=== PATIENT | male | born 1940 | race Caucasian/White ===

== ENCOUNTER 2020-06-19 17:10 | Inpatient (IN) ==
[2020-06-19] MEDS ORDERED: VENTOLIN HFA (PER PUFF-WITH SPACER) IH STA ×2 (17:28→20:18)
--- NOTE | 2020-06-19 17:49 | ED.PDOC ---
General <AMY MARTINEZ DO - Last Filed: 06/22/20 07:39> ED Provider: Dr. AMY MARTINEZ Chief Complaint: Shortness of Air Stated Complaint: Pos for Covid; Tested 10 days ago. Today developed increasing breathing difficulties. Time Seen by Physician: 17:30 Mode of Arrival: Walk-In Information Source: Patient Exam Limitations: No limitations Primary Care Provider: AMY MAC Nursing and Triage Documentation Reviewed and Agree: Yes Does patient meet sepsis criteria?: No System Inflammatory Response Syndrome: Not Applicable Sepsis Protocol: For patient's 13 years and over: Temp is 96.8 and below OR 101 and greater Pulse >90 BPM Resp >20/minute Acutely Altered Mental Status Are patient's symptoms suggestive of a new infection, such as: -Pneumonia -Skin, Soft Tissue -Endocarditis -UTI -Bone, Joint Infection -Implantable Device -Acute Abdominal Infection -Wound Infection -Meningitis -Blood Stream Catheter Infection -Unknown Respiratory Complaint Exam <DO Reagan BARFIELD Last Filed: 06/22/20 07:39> Shortness of Air Complaint/Exam Onset/Duration: Several days Symptoms Are: Worse Timing: Intermittent Initial Severity: Moderate Current Severity: Moderate Character: Reports Dyspnea at rest and Dyspnea on exertion Aggravating: Reports Movement, Deep breaths and Recumbent position Alleviating: Reports None Associated Signs and Symptoms: Reports Cough; Denies Wheezing, Chest pain with cough, Chest pain, Fever, Chills, Diaphoresis, Nasal congestion, Dizziness, Calf pain, Calf swelling, Edema, Rapid breathing, Labored breathing and Decreased intake Related History: Reports Similar episode History of Healthcare-Acquired Pneumonia: No Pulmonary Embolism Risk Factors: Reports None Cardiac Risk Factors: Reports None Pseudomonas Risk Factors: Reports None Tuberculosis Risk Factors: Reports None Home Oxygen Use: No Recent Stress Test: No Recent Echo/LV Function: No Respiratory Distress: None Stridor Present: No Tracheal Deviation: No Subcutaneous Emphysema: No Accessory Muscle Use: No Retractions: Not Present Diminished Breath Sounds: No Unable to Speak Full Sentences: No Fatigue: Yes Leg Swelling: No [employer]'s Sign Present: No Grunting Respirations: No Kussmaul Respirations: No Differential Diagnoses: Pneumonia and Other (COVID-19) Review of Systems <DO Reagan BARFIELD Last Filed: 06/22/20 07:39> Review Of Systems Constitutional: Reports Weakness Respiratory: Reports Cough and Short of air All Other Systems: Reviewed and Negative PFSH <AMY MARTINEZ DO - Last Filed: 06/22/20 07:39> Medical History Cancer Family History SISTER Cancer Social History Smoking and tobacco status: Former smoker Surgical History Hx of total knee replacement Physical Exam <AMY MARTINEZ DO - Last Filed: 06/22/20 07:39> Physical Exam Appearance: Reports Ill-appearing and Obese Ill-appearing: Mild Pain Distress: None Eyes: Reports HARRY, EOMI and Conjunctiva clear ENT: Reports Ears normal, Nose normal and Oropharynx normal Neck: Supple Respiratory: Reports Airway patent, Breath sounds clear, Breath sounds equal and Respirations nonlabored Cardiovascular: Reports RRR, Pulses normal, No rub and No murmur GI/: Reports Soft, Nontender, No masses, Bowel sounds normal and No Organomegaly Musculoskeletal: Reports Normal strength, ROM intact, No edema and No calf tenderness Skin: Reports Warm, Dry and Normal color Neurological: Reports Sensation intact, Motor intact, Reflexes intact, Cranial nerves intact, Alert and Oriented Psychiatric: Reports Affect appropriate and Mood appropriate Interpretation <AMY MARTINEZ DO - Last Filed: 06/22/20 07:39> Radiology Interpretation Radiology Interpretation By: Radiologist Radiology Results: Positive (interstitial pneumonitis) EKG Interpretation Time of EKG #1: 18:29 Rate: Tachy ST Segment: Other (non specific) Interpretation: pac, sinus tachycardia <NYLA NAIDU MD - Last Filed: 06/19/20 22:22> Re-Evaluation Time of Re-Evaluation: 19:10 Status: Unchanged Vital Signs Stable: No Pain Level: 0 Appearance: NAD Lungs: Other (minimal rhonchi and wheezes. ) Skin: Warm and Dry Neuro: Alert and Oriented X3 CV: RRR Additional Comments: Pt was sitting comfortably in the chair. mild recurrent cough. Pt ABG was reviewed, and d/w Dr Mac: pt for admission. Please see orders per Dr Mac. Physician Notification <AMY MARTINEZ DO - Last Filed: 06/22/20 07:39> Case Discussed Physician Notified: Dr Naidu-discussed and accepted transfer of care Time of Notification: 19:15 <NYLA NAIDU MD - Last Filed: 06/19/20 22:22> Critical Care Note Total Critical Care Time (mins): 0 Course <AMY MARTINEZ DO - Last Filed: 06/22/20 07:39> Course Hematology/Chemistry: 06/22/20 05:00 06/22/20 05:00 Orders, Labs, Meds: Lab Review 06/19/20 06/19/20 06/19/20 17:40 17:59 17:59 WBC 8.32 RBC 4.52 L Hgb 14.0 Hct 40.3 L MCV 89.2 MCH 31.0 MCHC 34.7 RDW Coeff of Deborah 14.1 Plt Count 163 Immature Gran % (Auto) 0.4 Neut % (Auto) 92.0 H Lymph % (Auto) 3.7 L Garfield % (Auto) 3.8 Eos % (Auto) 0.0 Baso % (Auto) 0.1 Neut # (Auto) 7.7 H Lymph # (Auto) 0.3 L Garfield # (Auto) 0.3 L Eos # (Auto) 0.0 Baso # (Auto) 0.0 Immature Gran # (Auto) 0.0 Puncture Site Rr O2 Saturation 85.5 L ABG pH 7.45 ABG pCO2 31.0 L ABG pO2 48.0 L* ABG HCO3 21.5 L ABG Total CO2 22.5 ABG Base Excess -2.5 L Art Test + Oxygen Liter Flow FiO2 % 21.0 Sodium 133.8 L Potassium 4.35 Chloride 99.6 Carbon Dioxide 24.0 Anion Gap 14.55 BUN 26.7 H Creatinine 1.15 H Estimated GFR (MDRD) 61.00 BUN/Creatinine Ratio 23.21 Glucose 123.5 H Lactic Acid Calcium 9.50 Total Bilirubin 0.94 AST 54.5 ALT 24.4 Alkaline Phosphatase 59.7 Total Creatine Kinase 521.9 H CK-MB (CK-2) 4.390 H CK-MB (CK-2) % 0.8400 Total Protein 8.16 Albumin 4.62 Globulin 3.54 Albumin/Globulin Ratio 1.30 06/19/20 06/19/20 17:59 19:01 WBC RBC Hgb Hct MCV MCH MCHC RDW Coeff of Deborah Plt Count Immature Gran % (Auto) Neut % (Auto) Lymph % (Auto) Garfield % (Auto) Eos % (Auto) Baso % (Auto) Neut # (Auto) Lymph # (Auto) Garfield # (Auto) Eos # (Auto) Baso # (Auto) Immature Gran # (Auto) Puncture Site Bnc O2 Saturation 93.6 L ABG pH 7.51 H* ABG pCO2 25.0 L ABG pO2 66.0 L ABG HCO3 19.9 L ABG Total CO2 20.7 L ABG Base Excess -3.1 L Art Test + Oxygen Liter Flow 2.00 FiO2 % 28.0 Sodium Potassium Chloride Carbon Dioxide Anion Gap BUN Creatinine Estimated GFR (MDRD) BUN/Creatinine Ratio Glucose Lactic Acid 1.33 Calcium Total Bilirubin AST ALT Alkaline Phosphatase Total Creatine Kinase CK-MB (CK-2) CK-MB (CK-2) % Total Protein Albumin Globulin Albumin/Globulin Ratio Orders Category Date Time Status ADMIT PATIENT INPATIENT .TO [facility] (MONITORED BED) ADMISSION 06/19/20 21:49 Active ABG DRAW REQUEST Stat CARDIO 06/19/20 17:28 Completed ABG DRAW REQUEST Stat CARDIO 06/19/20 19:01 Completed EKG-(ED ONLY) Stat CARDIO 06/19/20 18:17 Completed METERED DOSE INHALATION Routine CARDIO 06/19/20 17:29 Completed METERED DOSE INHALATION Routine CARDIO 06/19/20 20:20 Active OXYGEN Routine CARDIO 06/19/20 17:29 Active TELEMETRY MONITORING TELE CARE 06/19/20 21:51 Active ED IV/MEDIPORT/POWERPORT .ONCE EMERGENCY 06/19/20 20:18 Active ABG Stat LAB 06/19/20 17:40 Completed ABG Stat LAB 06/19/20 19:01 Completed CBC W/ AUTO DIFF Stat LAB 06/19/20 17:59 Completed CMP [COMPREHENSIVE METABOLIC PANEL] Stat LAB 06/19/20 17:59 Completed CPK [CREATINE KINASE] Stat LAB 06/19/20 17:59 Completed LACTIC ACID Stat LAB 06/19/20 17:59 Completed 0.9 % Sodium Chloride [Saline Flush] MEDS 06/19/20 20:18 Active 1 syr IVF PRN PRN Acetaminophen [Tylenol] MEDS 06/19/20 18:57 Discontinued 650 mg PO ONCE STA Albuterol Inhaler (Single Pt) [Proair Hfa (Single MEDS 06/19/20 22:00 Discontinued Patient Use)] 2 puff IH Q4HR Albuterol Inhaler(with Spacer) [Ventolin Hfa (Per Puff- MEDS 06/19/20 17:28 Discontinued with Spacer)] 2 puff IH ONCE STA Albuterol Inhaler(with Spacer) [Ventolin Hfa (Per Puff- MEDS 06/19/20 20:18 Discontinued with Spacer)] 2 puff IH ONCE STA Azithromycin [Zithromax] MEDS 06/19/20 18:15 Discontinued 500 mg PO ONCE STA Ceftriaxone/D5w 1 gm Premix [Rocephin 1 gm/50 ml D5w] MEDS 06/19/20 22:00 Discontinued 1 gm in 50 ml IV DAILY Dexamethasone Sod Phosphate [Decadron] MEDS 06/19/20 21:51 Discontinued 6 mg IVP ONCE STA Doxycycline Hyclate Inj [Doxy-100] 100 mg MEDS 06/19/20 22:00 Active 0.9 % Sodium Chloride [Sodium Chloride] 100 ml IV Q12HR Guaifenesin/Dextromethorphan [Robitussin Dm Syrup] MEDS 06/19/20 18:16 Discontinued 10 ml PO ONCE STA Ipratropium Inhaler(Spacer) [Atrovent Hfa Inhaler (Per MEDS 06/19/20 20:18 Discontinued Puff-with Spacer)] 2 puff IH ONCE STA Remdesivir Solution [Remdesivir] 200 mg MEDS 06/19/20 21:51 Discontinued 0.9 % Sodium Chloride [Sodium Chloride] 210 ml IV ONCE Sodium Chloride 0.9% [Sodium Chloride] 500 ml MEDS 06/19/20 20:18 Discontinued IV BOLUS CHEST, 1V AP ONLY Stat RADS 06/19/20 17:29 Completed Medications Generic Name Dose Route Start Last Admin Trade Name Freq PRN Reason Stop Dose Admin Acetaminophen 650 mg 06/19/20 22:10 Acetaminophen 325 Mg Tablet PO Q4HR PRN Fever >101 Albuterol Sulfate 2 puff 06/20/20 02:00 06/22/20 05:50 Albuterol Sulfate (Ventolin Hfa) 18 Gm 1 Puff With Spacer IH 2 puff RTQ4H LILLIAN Administration Atorvastatin Calcium 10 mg 11/24/20 22:30 06/21/20 20:14 Atorvastatin Calcium 10 Mg Tablet PO 10 mg BEDTIME LILLIAN Administration Dexamethasone Sodium Phosphate 6 mg 06/20/20 14:00 06/21/20 11:01 Dexamethasone Sod Phos 10 Mg/Ml Inj IVP 6 mg DAILY LILLIAN Administration Enoxaparin Sodium 40 mg 06/19/20 22:30 06/21/20 09:37 Enoxaparin Sodium 40 Mg/0.4 Ml Syr SUBCUT 40 mg DAILY LILLIAN Administration Famotidine 40 mg 06/19/20 22:30 06/21/20 21:12 Famotidine Inj 20 Mg/2 Ml Vial IVP 40 mg Q12HR LILLIAN Administration Guaifenesin/Codeine Phosphate 5 ml 06/19/20 22:10 06/22/20 03:44 Guaifenesin/Codeine 100/10 Mg/5 Ml Syrup Ud Cup PO 5 ml Q4HR PRN Administration Cough Doxycycline Hyclate 100 mg/ 100 mls @ 50 mls/hr 06/19/20 22:00 06/21/20 21:54 Sodium Chloride IV 06/22/20 21:59 50 mls/hr Q12HR LILLIAN Administration CEFTRIAXONE/D5W 1 GM PREMIX 1 gm in 50 mls @ 75 mls/hr 06/20/20 21:00 05/28 01/13 20:14 Rocephin 1 Gm/50 Ml D5w IV 06/22/20 21:59 75 mls/hr BEDTIME LILLIAN Administration REMDESIVIR SOLUTION 100 mg/ 250 mls @ 250 mls/hr 06/21/20 09:00 06/21/20 09:37 Sodium Chloride IV 06/24/20 10:00 250 mls/hr DAILY LILLIAN Administration Ipratropium [place] 2 puff 06/20/20 06:00 06/22/20 05:50 Ipratropium [place] 12.9 Gm Hfa Inhaler Per Puff With Spacer IH 2 puff RTQID LILLIAN Administration Non-Formulary Medication 10 mg 06/19/20 23:15 06/21/20 20:21 Ruxolitinib [Jakafi] PO 10 mg BID LILLIAN Administration Non-Formulary Medication 20 mg 06/19/20 23:15 06/21/20 20:20 Trospium PO 20 mg BID LILLIAN Administration Sodium Chloride 1 syr 06/19/20 20:18 06/20/20 20:13 0.9% Sodium Chloride 10 Ml Disp.Syrin IVF 1 syr PRN PRN Administration To flush IV Discontinued Medications Generic Name Dose Route Start Last Admin Trade Name Freq PRN Reason Stop Dose Admin Acetaminophen 650 mg 06/19/20 18:57 06/19/20 20:53 Acetaminophen 325 Mg Tablet PO 06/19/20 18:58 650 mg ONCE STA Administration Albuterol Sulfate 2 puff 06/19/20 17:28 06/19/20 18:12 Albuterol Sulfate (Ventolin Hfa) 18 Gm 1 Puff With Spacer IH 06/19/20 17:29 2 puff ONCE STA Administration Albuterol Sulfate 2 puff 06/19/20 20:18 06/19/20 21:09 Albuterol Sulfate (Ventolin Hfa) 18 Gm 1 Puff With Spacer IH 06/19/20 20:19 2 puff ONCE STA Administration Albuterol Sulfate 2 puff 06/19/20 22:00 06/19/20 22:12 Albuterol Sulfate 8.5 Gm Inhaler (Single Patient Use) IH Not Given Q4HR LILLIAN Azithromycin 500 mg 06/19/20 18:15 06/19/20 18:35 Azithromycin 250 Mg Tablet PO 06/19/20 18:16 500 mg ONCE STA Administration Dexamethasone Sodium Phosphate 6 mg 06/19/20 21:51 06/19/20 22:46 Dexamethasone Sod Phos 10 Mg/Ml Inj IVP 06/19/20 21:52 6 mg ONCE STA Administration Guaifenesin/Dextromethorphan 10 ml 06/19/20 18:16 06/19/20 18:36 Guaifenesin/Dextromethorphan 200/20 Mg/10 Ml Cup PO 06/19/20 18:17 10 ml ONCE STA Administration Sodium Chloride 500 mls @ 500 mls/hr 06/19/20 20:18 06/19/20 21:10 Sodium Chloride IV 06/19/20 21:17 500 mls/hr BOLUS STA Administration CEFTRIAXONE/D5W 1 GM PREMIX 1 gm in 50 mls @ 75 mls/hr 06/19/20 22:00 06/20/20 00:12 Rocephin 1 Gm/50 Ml D5w IV 06/22/20 21:59 75 mls/hr DAILY LILLIAN Administration REMDESIVIR POWDER 200 mg/ 250 mls @ 125 mls/hr 06/19/20 21:51 06/21/20 11:03 Sodium Chloride IV 06/19/20 23:50 Not Given ONCE STA REMDESIVIR POWDER 100 mg/ 100 mls @ 100 mls/hr 06/20/20 09:00 06/20/20 09:51 Sodium Chloride IV 06/25/20 08:59 Not Given DAILY LILLIAN REMDESIVIR POWDER 200 mg/ 250 mls @ 125 mls/hr 06/20/20 08:30 06/20/20 09:17 Sodium Chloride IV 06/20/20 10:29 125 mls/hr ONCE ONE Administration Ipratropium Vernon 2 puff 06/19/20 20:18 06/19/20 21:09 Ipratropium [place] 12.9 Gm Hfa Inhaler Per Puff With Spacer IH 06/19/20 20:19 2 puff ONCE STA Administration Vital Signs: Temp Pulse Resp BP Pulse Ox 06/19/20 17:23 100.7 F H 109 H 20 142/58 H 91 L <NYLA NAIDU MD - Last Filed: 06/19/20 22:22> Course Orders, Labs, Meds: Lab Review 06/19/20 06/19/20 06/19/20 17:40 17:59 17:59 WBC 8.32 RBC 4.52 L Hgb 14.0 Hct 40.3 L MCV 89.2 MCH 31.0 MCHC 34.7 RDW Coeff of Deborah 14.1 Plt Count 163 Immature Gran % (Auto) 0.4 Neut % (Auto) 92.0 H Lymph % (Auto) 3.7 L Garfield % (Auto) 3.8 Eos % (Auto) 0.0 Baso % (Auto) 0.1 Neut # (Auto) 7.7 H Lymph # (Auto) 0.3 L Garfield # (Auto) 0.3 L Eos # (Auto) 0.0 Baso # (Auto) 0.0 Immature Gran # (Auto) 0.0 Puncture Site Rr O2 Saturation 85.5 L ABG pH 7.45 ABG pCO2 31.0 L ABG pO2 48.0 L* ABG HCO3 21.5 L ABG Total CO2 22.5 ABG Base Excess -2.5 L Art Test + Oxygen Liter Flow FiO2 % 21.0 Sodium 133.8 L Potassium 4.35 Chloride 99.6 Carbon Dioxide 24.0 Anion Gap 14.55 BUN 26.7 H Creatinine 1.15 H Estimated GFR (MDRD) 61.00 BUN/Creatinine Ratio 23.21 Glucose 123.5 H Lactic Acid Calcium 9.50 Total Bilirubin 0.94 AST 54.5 ALT 24.4 Alkaline Phosphatase 59.7 Total Creatine Kinase 521.9 H CK-MB (CK-2) 4.390 H CK-MB (CK-2) % 0.8400 Total Protein 8.16 Albumin 4.62 Globulin 3.54 Albumin/Globulin Ratio 1.30 06/19/20 06/19/20 17:59 19:01 WBC RBC Hgb Hct MCV MCH MCHC RDW Coeff of Deborah Plt Count Immature Gran % (Auto) Neut % (Auto) Lymph % (Auto) Garfield % (Auto) Eos % (Auto) Baso % (Auto) Neut # (Auto) Lymph # (Auto) Garfield # (Auto) Eos # (Auto) Baso # (Auto) Immature Gran # (Auto) Puncture Site Bnc O2 Saturation 93.6 L ABG pH 7.51 H* ABG pCO2 25.0 L ABG pO2 66.0 L ABG HCO3 19.9 L ABG Total CO2 20.7 L ABG Base Excess -3.1 L Art Test + Oxygen Liter Flow 2.00 FiO2 % 28.0 Sodium Potassium Chloride Carbon Dioxide Anion Gap BUN Creatinine Estimated GFR (MDRD) BUN/Creatinine Ratio Glucose Lactic Acid 1.33 Calcium Total Bilirubin AST ALT Alkaline Phosphatase Total Creatine Kinase CK-MB (CK-2) CK-MB (CK-2) % Total Protein Albumin Globulin Albumin/Globulin Ratio Orders Category Date Time Status ADMIT PATIENT INPATIENT .TO [facility] (MONITORED BED) ADMISSION 06/19/20 21:49 Active ABG DRAW REQUEST Stat CARDIO 06/19/20 17:28 Completed ABG DRAW REQUEST Stat CARDIO 06/19/20 19:01 Completed EKG-(ED ONLY) Stat CARDIO 06/19/20 18:17 Completed METERED DOSE INHALATION Routine CARDIO 06/19/20 17:29 Completed METERED DOSE INHALATION Routine CARDIO 06/19/20 20:20 Active OXYGEN Routine CARDIO 06/19/20 17:29 Active TELEMETRY MONITORING TELE CARE 06/19/20 21:51 Active ED IV/MEDIPORT/POWERPORT .ONCE EMERGENCY 06/19/20 20:18 Active ABG Stat LAB 06/19/20 17:40 Completed ABG Stat LAB 06/19/20 19:01 Completed CBC W/ AUTO DIFF Stat LAB 06/19/20 17:59 Completed CMP [COMPREHENSIVE METABOLIC PANEL] Stat LAB 06/19/20 17:59 Completed CPK [CREATINE KINASE] Stat LAB 06/19/20 17:59 Completed LACTIC ACID Stat LAB 06/19/20 17:59 Completed 0.9 % Sodium Chloride [Saline Flush] MEDS 06/19/20 20:18 Active 1 syr IVF PRN PRN Acetaminophen [Tylenol] MEDS 06/19/20 18:57 Discontinued 650 mg PO ONCE STA Albuterol Inhaler (Single Pt) [Proair Hfa (Single MEDS 06/19/20 22:00 Discontinued Patient Use)] 2 puff IH Q4HR Albuterol Inhaler(with Spacer) [Ventolin Hfa (Per Puff- MEDS 06/19/20 17:28 Discontinued with Spacer)] 2 puff IH ONCE STA Albuterol Inhaler(with Spacer) [Ventolin Hfa (Per Puff- MEDS 06/19/20 20:18 Discontinued with Spacer)] 2 puff IH ONCE STA Azithromycin [Zithromax] MEDS 06/19/20 18:15 Discontinued 500 mg PO ONCE STA Ceftriaxone/D5w 1 gm Premix [Rocephin 1 gm/50 ml D5w] MEDS 06/19/20 22:00 Discontinued 1 gm in 50 ml IV DAILY Dexamethasone Sod Phosphate [Decadron] MEDS 06/19/20 21:51 Discontinued 6 mg IVP ONCE STA Doxycycline Hyclate Inj [Doxy-100] 100 mg MEDS 06/19/20 22:00 Active 0.9 % Sodium Chloride [Sodium Chloride] 100 ml IV Q12HR Guaifenesin/Dextromethorphan [Robitussin Dm Syrup] MEDS 06/19/20 18:16 Discontinued 10 ml PO ONCE STA Ipratropium Inhaler(Spacer) [Atrovent Hfa Inhaler (Per MEDS 06/19/20 20:18 Discontinued Puff-with Spacer)] 2 puff IH ONCE STA Remdesivir Solution [Remdesivir] 200 mg MEDS 06/19/20 21:51 Discontinued 0.9 % Sodium Chloride [Sodium Chloride] 210 ml IV ONCE Sodium Chloride 0.9% [Sodium Chloride] 500 ml MEDS 06/19/20 20:18 Discontinued IV BOLUS CHEST, 1V AP ONLY Stat RADS 06/19/20 17:29 Completed Medications Generic Name Dose Route Start Last Admin Trade Name Freq PRN Reason Stop Dose Admin Acetaminophen 650 mg 06/19/20 22:10 Acetaminophen 325 Mg Tablet PO Q4HR PRN Fever >101 Albuterol Sulfate 2 puff 06/20/20 02:00 06/22/20 05:50 Albuterol Sulfate (Ventolin Hfa) 18 Gm 1 Puff With Spacer IH 2 puff RTQ4H LILLIAN Administration Atorvastatin Calcium 10 mg 06/19/20 22:30 06/21/20 20:14 Atorvastatin Calcium 10 Mg Tablet PO 10 mg BEDTIME LILLIAN Administration Dexamethasone Sodium Phosphate 6 mg 06/20/20 14:00 06/21/20 11:01 Dexamethasone Sod Phos 10 Mg/Ml Inj IVP 6 mg DAILY LILLIAN Administration Enoxaparin Sodium 40 mg 06/19/20 22:30 06/21/20 09:37 Enoxaparin Sodium 40 Mg/0.4 Ml Syr SUBCUT 40 mg DAILY LILLIAN Administration Famotidine 40 mg 06/19/20 22:30 06/21/20 21:12 Famotidine Inj 20 Mg/2 Ml Vial IVP 40 mg Q12HR LILLIAN Administration Guaifenesin/Codeine Phosphate 5 ml 06/19/20 22:10 06/22/20 03:44 Guaifenesin/Codeine 100/10 Mg/5 Ml Syrup Ud Cup PO 5 ml Q4HR PRN Administration Cough Doxycycline Hyclate 100 mg/ 100 mls @ 50 mls/hr 06/19/20 22:00 06/21/20 21:54 Sodium Chloride IV 06/22/20 21:59 50 mls/hr Q12HR LILLIAN Administration CEFTRIAXONE/D5W 1 GM PREMIX 1 gm in 50 mls @ 75 mls/hr 06/20/20 21:00 06/21/20 20:14 Rocephin 1 Gm/50 Ml D5w IV 06/22/20 21:59 75 mls/hr BEDTIME LILLIAN Administration REMDESIVIR SOLUTION 100 mg/ 250 mls @ 250 mls/hr 06/21/20 09:00 06/21/20 09:37 Sodium Chloride IV 06/24/20 10:00 250 mls/hr DAILY LILLIAN Administration Ipratropium [place] 2 puff 06/20/20 06:00 06/22/20 05:50 Ipratropium [place] 12.9 Gm Hfa Inhaler Per Puff With Spacer IH 2 puff RTQID LILLIAN Administration Non-Formulary Medication 10 mg 06/19/20 23:15 06/21/20 20:21 Ruxolitinib [Jakafi] PO 10 mg BID LILLIAN Administration Non-Formulary Medication 20 mg 06/19/20 23:15 06/21/20 20:20 Trospium PO 20 mg BID LILLIAN Administration Sodium Chloride 1 syr 06/19/20 20:18 06/20/20 20:13 0.9% Sodium Chloride 10 Ml Disp.Syrin IVF 1 syr PRN PRN Administration To flush IV Discontinued Medications Generic Name Dose Route Start Last Admin Trade Name Freq PRN Reason Stop Dose Admin Acetaminophen 650 mg 06/19/20 18:57 06/19/20 20:53 Acetaminophen 325 Mg Tablet PO 06/19/20 18:58 650 mg ONCE STA Administration Albuterol Sulfate 2 puff 06/19/20 17:28 06/19/20 18:12 Albuterol Sulfate (Ventolin Hfa) 18 Gm 1 Puff With Spacer IH 06/19/20 17:29 2 puff ONCE STA Administration Albuterol Sulfate 2 puff 06/19/20 20:18 06/19/20 21:09 Albuterol Sulfate (Ventolin Hfa) 18 Gm 1 Puff With Spacer IH 06/19/20 20:19 2 puff ONCE STA Administration Albuterol Sulfate 2 puff 06/19/20 22:00 06/19/20 22:12 Albuterol Sulfate 8.5 Gm Inhaler (Single Patient Use) IH Not Given Q4HR LILLIAN Azithromycin 500 mg 06/19/20 18:15 06/19/20 18:35 Azithromycin 250 Mg Tablet PO 06/19/20 18:16 500 mg ONCE STA Administration Dexamethasone Sodium Phosphate 6 mg 06/19/20 21:51 06/19/20 22:46 Dexamethasone Sod Phos 10 Mg/Ml Inj IVP 06/19/20 21:52 6 mg ONCE STA Administration Guaifenesin/Dextromethorphan 10 ml 06/19/20 18:16 06/19/20 18:36 Guaifenesin/Dextromethorphan 200/20 Mg/10 Ml Cup PO 06/19/20 18:17 10 ml ONCE STA Administration Sodium Chloride 500 mls @ 500 mls/hr 06/19/20 20:18 06/19/20 21:10 Sodium Chloride IV 06/19/20 21:17 500 mls/hr BOLUS STA Administration CEFTRIAXONE/D5W 1 GM PREMIX 1 gm in 50 mls @ 75 mls/hr 06/19/20 22:00 06/20/20 00:12 Rocephin 1 Gm/50 Ml D5w IV 06/22/20 21:59 75 mls/hr DAILY LILLIAN Administration REMDESIVIR POWDER 200 mg/ 250 mls @ 125 mls/hr 06/19/20 21:51 06/21/20 11:03 Sodium Chloride IV 06/19/20 23:50 Not Given ONCE STA REMDESIVIR POWDER 100 mg/ 100 mls @ 100 mls/hr 06/20/20 09:00 06/20/20 09:51 Sodium Chloride IV 06/25/20 08:59 Not Given DAILY LILLIAN REMDESIVIR POWDER 200 mg/ 250 mls @ 125 mls/hr 06/20/20 08:30 06/20/20 09:17 Sodium Chloride IV 06/20/20 10:29 125 mls/hr ONCE ONE Administration Ipratropium [place] 2 puff 06/19/20 20:18 06/19/20 21:09 Ipratropium [place] 12.9 Gm Hfa Inhaler Per Puff With Spacer IH 06/19/20 20:19 2 puff ONCE STA Administration Vital Signs: Temp Pulse Resp BP Pulse Ox 06/19/20 17:23 100.7 F H 109 H 20 142/58 H 91 L Discharge Plan Discharge Patient Disposition: ADMITTED INPATIENT Discharge Problem: Pneumonia due to 2019-nCoV ED Provider: NYLA NAIDU Condition: Fair <AMY MARTINEZ, DO - Last Filed: 06/22/20 07:39> Physician Progress Note: []
[2020-06-19 17:55] LABS: ABG PH 7.45 (7.35-7.45)
[2020-06-19 17:57] LABS: ABG BASE EXCESS -2.5 (-2.0-2.0); ABG HCO3 21.5 (22.0-26.0); ABG TCO2 22.5 (22.0-28.0)
[2020-06-19 17:58] LABS: ABG OXYGEN SATURATION 85.5 % (95-100)
--- NOTE | 2020-06-19 18:05 | DI ---
EXAM: Single, portable AP view(s) chest. HISTORY: Shortness of breath. COVID-19 positive. COMPARISON: None. TECHNIQUE: Single, portable AP view(s) of the chest. FINDINGS: Lungs: The lung volumes are low..Scattered interstitial airspace opacities are seen bilaterally, most prominent left base. There are no suspicious nodules. There is no pneumothorax. Cardiovascular: The heart is enlarged. The pulmonary vasculature is within normal limits.. The aort a is unremarkable. Niecy/Mediastinum: Normal. Osseous structures. Normal for age. IMPRESSION: 1. Diffuse interstitial airspace opacities seen bilaterally which may be due to atelectasis or pneumo nitis. 2. Mild cardiomegaly.
[2020-06-19 18:06] LABS: BASOPHILS % (AUTO) 0.1 % (0.0-3.0); HEMATOCRIT 40.3 % (42.0-52.0); IMMATURE GRANULOCYTE % (AUTO) 0.4 % (0.0-5.0); LYMPHOCYTES # (AUTO) 0.3 K/uL (0.60-3.4); LYMPHOCYTES % (AUTO) 3.7 (10.0-50.0); MEAN CORPUSCULAR HGB CONC 34.7 (31.8-35.4); MEAN CORPUSCULAR VOLUME 89.2 fl (80.0-94.0); MONOCYTES # (AUTO) 0.3 K/uL (0.4-2.0); MONOCYTES % (AUTO) 3.8 (0-10); NEUTROPHILS # (AUTO) 7.7 K/ul (2.0-6.9); PLATELET COUNT 163 10^3/uL (140-440); RDW COEFFICIENT OF VARIATION 14.1 % (11.6-14.8); RED BLOOD COUNT 4.52 10^6/ul (4.70-6.10); WHITE BLOOD COUNT 8.32 K/ul (4.2-10.2)
[2020-06-19] MEDS ORDERED: ZITHROMAX PO STA (18:15)
[2020-06-19] MEDS ORDERED: ROBITUSSIN DM SYRUP PO STA (18:16)
[2020-06-19 18:19] LABS: ALANINE AMINOTRANSFERASE 24.4 U/L (0-50); ALBUMIN 4.62 g/dL (3.5-5.0); ALKALINE PHOSPHATASE 59.7 U/L (56-119); ASPARTATE AMINO TRANSFERASE 54.5 U/L (17-59); BILIRUBIN,TOTAL 0.94 mg/dL (0.2-1.3); BLOOD UREA NITROGEN 26.7 mg/dL (9-20); CALCIUM 9.5 mg/dL (8.4-10.2); CHLORIDE 99.6 mmol/L (98-107); CREATINE KINASE 521.9 U/L (55-170); CREATININE 1.15 mg/dL (0.60-1.10); GLUCOSE 123.5 mg/dL (74-106); POTASSIUM 4.35 mmol/L (3.5-5.1); SODIUM 133.8 mmol/L (134.5-145); TOTAL PROTEIN 8.16 g/dL (6.3-8.2)
[2020-06-19 18:34] LABS: CREATINE KINASE MB 4.39 ng/ml (0.0-2.38)
[2020-06-19] MEDS ORDERED: TYLENOL PO STA (18:57)
[2020-06-19 20:05] LABS: ABG BASE EXCESS -3.1 (-2.0-2.0); ABG HCO3 19.9 (22.0-26.0); ABG PH 7.51 (7.35-7.45)
[2020-06-19 20:06] LABS: ABG OXYGEN SATURATION 93.6 % (95-100); ABG TCO2 20.7 (22.0-28.0)
[2020-06-19] MEDS ORDERED: ATROVENT HFA INHALER (PER PUFF-WITH SPACER) IH STA (20:18)
[2020-06-19] MEDS ORDERED: SODIUM CHLORIDE 500 ML IV STA (20:18)
[2020-06-19] MEDS ORDERED: SODIUM CHLORIDE 1,000 ML IV STA (20:18)
[2020-06-19] MEDS ORDERED: REMDESIVIR 200 MG in SODIUM CHLORIDE 210 ML IV STA (21:51)
[2020-06-19] MEDS ORDERED: DECADRON IVP STA (21:51)
[2020-06-19] MEDS ORDERED: ROCEPHIN 1 GM/50 ML D5W 1 GM/50 ML BAG IV SCH (22:00)
[2020-06-19] MEDS ORDERED: PROAIR HFA (SINGLE PATIENT USE) IH SCH (22:00)
[2020-06-19] MEDS ORDERED: TYLENOL PO PRN (22:10)
[2020-06-19] MEDS: LOVENOX SUBCUT SCH (22:47)
[2020-06-19 23:23] VITALS: BMI 33.4
[2020-06-20] MEDS: LIPITOR PO SCH ×2 (00:11→20:11)
[2020-06-20] MEDS: PEPCID IVP SCH ×3 (00:12→20:12)
[2020-06-20] MEDS: VENTOLIN HFA (PER PUFF-WITH SPACER) IH SCH ×6 (00:52→22:04)
[2020-06-20] MEDS: DOXY-100 100 MG in SODIUM CHLORIDE 100 ML IV SCH ×3 (01:27→21:17)
[2020-06-20] MEDS: ATROVENT HFA INHALER (PER PUFF-WITH SPACER) IH SCH ×4 (04:40→22:04)
[2020-06-20 05:43] LABS: PROTHROMBIN TIME 11.8 SEC (9.3-11.0)
[2020-06-20 05:47] LABS: ALANINE AMINOTRANSFERASE 22.2 U/L (0-50); ALBUMIN 3.94 g/dL (3.5-5.0); ALKALINE PHOSPHATASE 51.9 U/L (56-119); ASPARTATE AMINO TRANSFERASE 53.3 U/L (17-59); BILIRUBIN,TOTAL 0.71 mg/dL (0.2-1.3); BLOOD UREA NITROGEN 24.5 mg/dL (9-20); CALCIUM 8.95 mg/dL (8.4-10.2); CARBON DIOXIDE 23.1 mmol/L (22-30.0); CHLORIDE 101.9 mmol/L (98-107); CREATININE 0.98 mg/dL (0.60-1.10); GLUCOSE 192.5 mg/dL (74-106); POTASSIUM 4.78 mmol/L (3.5-5.1); SODIUM 132.9 mmol/L (134.5-145); TOTAL PROTEIN 7.15 g/dL (6.3-8.2)
[2020-06-20] MEDS ORDERED: REMDESIVIR 200 MG in SODIUM CHLORIDE 210 ML IV ONE (08:30)
[2020-06-20] MEDS ORDERED: REMDESIVIR 100 MG in SODIUM CHLORIDE 80 ML IV SCH ×2 (09:00)
[2020-06-20] MEDS ORDERED: ATROVENT HFA INHALER (SINGLE PATIENT USE) IH SCH (09:00)
[2020-06-20] MEDS: TROSPIUM 20 MG PO SCH ×2 (09:15→20:19)
[2020-06-20] MEDS: RUXOLITINIB 10 MG PO SCH ×2 (09:15→20:19)
[2020-06-20] MEDS: LOVENOX SUBCUT SCH (09:16)
[2020-06-20 11:40] LABS: ABG PH 7.44 (7.35-7.45)
[2020-06-20 11:41] LABS: ABG BASE EXCESS -5.2 (-2.0-2.0); ABG TCO2 19.9 (22.0-28.0)
[2020-06-20 11:42] LABS: ABG OXYGEN SATURATION 91.6 % (95-100)
[2020-06-20] MEDS: ROBITUSSIN AC SYRUP PO PRN ×3 (14:40→22:57)
[2020-06-20 15:07] LABS: ABG BASE EXCESS -5.6 (-2.0-2.0); ABG HCO3 19.2 (22.0-26.0); ABG TCO2 20.2 (22.0-28.0)
[2020-06-20 15:08] LABS: ABG OXYGEN SATURATION 99.3 % (95-100)
--- NOTE | 2020-06-20 16:20 | DI ---
EXAM: Single view of the chest. History: Short of breath Comparison: Chest radiograph 06/19/2020 Findings: Heart remains mildly enlarged. Worsening bilateral lung infiltrates. No definite pleural fluid and no pneumothorax. No acute osseous abnormalities. Stable old fracture of the right clavic le. Impression: Worsening bilateral lung infiltrates probably represents pneumonia. Interstitial pulmon rufino edema should also be considered
[2020-06-20 16:51] LABS: BASOPHILS % (AUTO) 0.2 % (0.0-3.0); IMMATURE GRANULOCYTE # (AUTO) 0.2 (0.0-1.0); IMMATURE GRANULOCYTE % (AUTO) 1.5 % (0.0-5.0); LYMPHOCYTES # (AUTO) 0.3 K/uL (0.60-3.4); LYMPHOCYTES % (AUTO) 2.6 (10.0-50.0); MEAN CORPUSCULAR HEMOGLOBIN 31.3 pg (27.0-31.0); MEAN CORPUSCULAR VOLUME 89.3 fl (80.0-94.0); MONOCYTES # (AUTO) 0.4 K/uL (0.4-2.0); MONOCYTES % (AUTO) 3.5 (0-10); NEUTROPHILS # (AUTO) 10.1 K/ul (2.0-6.9); NEUTROPHILS % (AUTO) 92.2 % (42.2-75.2); PLATELET COUNT 184 10^3/uL (140-440); RDW COEFFICIENT OF VARIATION 14.3 % (11.6-14.8); RED BLOOD COUNT 4.48 10^6/ul (4.70-6.10); WHITE BLOOD COUNT 10.98 K/ul (4.2-10.2)
[2020-06-20 16:57] LABS: ALANINE AMINOTRANSFERASE 26.1 U/L (0-50); ALBUMIN 4.3 g/dL (3.5-5.0); ALKALINE PHOSPHATASE 57.3 U/L (56-119); ASPARTATE AMINO TRANSFERASE 81.3 U/L (17-59); BILIRUBIN,TOTAL 0.77 mg/dL (0.2-1.3); BLOOD UREA NITROGEN 24.9 mg/dL (9-20); CALCIUM 9.13 mg/dL (8.4-10.2); CARBON DIOXIDE 23.4 mmol/L (22-30.0); CREATININE 1.04 mg/dL (0.60-1.10); GLUCOSE 131.1 mg/dL (74-106); POTASSIUM 4.1 mmol/L (3.5-5.1); SODIUM 134.7 mmol/L (134.5-145); TOTAL PROTEIN 7.73 g/dL (6.3-8.2)
[2020-06-20 17:08] LABS: ABG PH 7.45 (7.35-7.45)
[2020-06-20 17:09] LABS: ABG BASE EXCESS -5.9 (-2.0-2.0); ABG HCO3 18.1 (22.0-26.0); ABG OXYGEN SATURATION 95.7 % (95-100); ABG TCO2 18.9 (22.0-28.0)
--- NOTE | 2020-06-20 17:40 | PCM ---
Chief Complaint Chief Complaint: Hes got covid and he is sob History of Present Illness History of Present Illness: THis is an 80 yr old male with hx of polycythemia on Jakafi followed by dr burroughs who presented to the [facility] ed with sob and cough. He is known to be covid 19 test positive and has been exp symptoms for over a week. Today he called the office with symptoms of sob and was advised to go to the [facility] er and he presented here with cough and hypoxia and a cxr revealing an infiltrate and was admitted to my services here as there were no beds available at referring hospitals. Review of Systems Constitutional: Reports Fever, Weakness, Fatigue and Loss of appetite Eyes: Reports No symptoms Ears: Reports No symptoms Mouth: Reports No symptoms Respiratory: Reports Cough and Shortness of air Cardiovascular: Reports No symptoms Gastrointestinal: Reports No symptoms Genitourinary: Reports No symptoms Neurological: Reports No symptoms Musculoskeletal: Reports No symptoms Skin: Reports No symptoms Immunology: Reports No symptoms Hematology: Reports No symptoms Endocrine: Reports No symptoms Psychiatric: Reports No symptoms Habits: Reports Alcohol use Allergies Allergies Allergy/AdvReac Type Severity Reaction Status Date / Time No Known Drug Allergies AdvReac Verified 06/19/20 17:40 [facility] Medical History Cancer Surgical History Hx of total knee replacement Family History SISTER Cancer Social History Smoking and tobacco status: Former smoker Medications Medications: Medications Generic Name Dose Route Start Last Admin Trade Name Freq PRN Reason Stop Dose Admin Acetaminophen 650 mg 06/19/20 22:10 Acetaminophen 325 Mg Tablet PO Q4HR PRN Fever >101 Albuterol Sulfate 2 puff 06/20/20 02:00 06/20/20 17:15 Albuterol Sulfate (Ventolin Hfa) 18 Gm 1 Puff With Spacer IH 2 puff RTQ4H LILLIAN Administration Atorvastatin Calcium 10 mg 06/19/20 22:30 06/20/20 00:11 Atorvastatin Calcium 10 Mg Tablet PO 10 mg BEDTIME LILLIAN Administration Dexamethasone Sodium Phosphate 6 mg 06/20/20 14:00 Dexamethasone Sod Phos 10 Mg/Ml Inj IVP DAILY LILLIAN Enoxaparin Sodium 40 mg 06/19/20 22:30 06/20/20 09:16 Enoxaparin Sodium 40 Mg/0.4 Ml Syr SUBCUT 40 mg DAILY LILLIAN Administration Famotidine 40 mg 06/19/20 22:30 06/20/20 09:15 Famotidine Inj 20 Mg/2 Ml Vial IVP 40 mg Q12HR LILLIAN Administration Guaifenesin/Codeine Phosphate 5 ml 06/19/20 22:10 06/20/20 14:40 Guaifenesin/Codeine 100/10 Mg/5 Ml Syrup Ud Cup PO 5 ml Q4HR PRN Administration Cough Doxycycline Hyclate 100 mg/ 100 mls @ 50 mls/hr 06/19/20 22:00 06/20/20 11:58 Sodium Chloride IV 06/22/20 21:59 50 mls/hr Q12HR LILLIAN Administration CEFTRIAXONE/D5W 1 GM PREMIX 1 gm in 50 mls @ 75 mls/hr 06/20/20 21:00 Rocephin 1 Gm/50 Ml D5w IV 06/22/20 21:59 BEDTIME [facility] REMDESIVIR SOLUTION 100 mg/ 250 mls @ 250 mls/hr 06/21/20 09:00 Sodium Chloride IV 06/24/20 10:00 DAILY LILLIAN Ipratropium [place]ora 2 puff 06/20/20 06:00 06/20/20 14:40 Ipratropium [place] 12.9 Gm Hfa Inhaler Per Puff With Spacer IH 2 puff RTQID LILLIAN Administration Non-Formulary Medication 10 mg 06/19/20 23:15 06/20/20 09:15 Ruxolitinib [Jakafi] PO 10 mg BID LILLIAN Administration Non-Formulary Medication 20 mg 06/19/20 23:15 06/20/20 09:15 Trospium PO 20 mg BID LILLIAN Administration Sodium Chloride 1 syr 06/19/20 20:18 06/19/20 21:14 0.9% Sodium Chloride 10 Ml Disp.Syrin IVF 1 syr PRN PRN Administration To flush IV Body Composition Height: 5 ft 9 in Weight: 226 lb 3.108 oz Body Mass Index (BMI): 33.4 Vital Signs Temperature: 98 F Pulse Rate: 90 Respiratory Rate: 20 Blood Pressure: 118/74 O2 Sat by Pulse Oximetry: 95 Physical Examination Appearance: Reports Ill-appearing and Obese Ill-appearing: Mild Pain Distress: None Eyes: Reports HARRY, EOMI and Conjunctiva clear ENT: Reports Ears normal, Nose normal and Oropharynx normal Neck: Supple Respiratory: Reports Breath sounds diminished, Crackles and Wheezes Cardiovascular: Reports RRR, Pulses normal and Tachycardia GI/: Reports Soft, Nontender and No masses Musculoskeletal: Reports Normal strength, ROM intact, No edema and No calf tenderness Skin: Reports Warm, Dry and Normal color Neurological: Reports Sensation intact, Motor intact, Reflexes intact, Cranial nerves intact and Alert Psychiatric: Reports Affect appropriate, Mood appropriate and Anxious Lab/Tests/Diagnostic Imaging Lab/Tests/Diagnostic Imaging: Lab Review 06/19/20 06/19/20 06/19/20 17:40 17:59 17:59 WBC 8.32 RBC 4.52 L Hgb 14.0 Hct 40.3 L MCV 89.2 MCH 31.0 MCHC 34.7 RDW Coeff of Deborah 14.1 Plt Count 163 Immature Gran % (Auto) 0.4 Neut % (Auto) 92.0 H Lymph % (Auto) 3.7 L Chicot % (Auto) 3.8 Eos % (Auto) 0.0 Baso % (Auto) 0.1 Neut # (Auto) 7.7 H Lymph # (Auto) 0.3 L Ch[place]ot # (Auto) 0.3 L Eos # (Auto) 0.0 Baso # (Auto) 0.0 Immature Gran # (Auto) 0.0 PT INR Puncture Site Rr O2 Saturation 85.5 L ABG pH 7.45 ABG pCO2 31.0 L ABG pO2 48.0 L* ABG HCO3 21.5 L ABG Total CO2 22.5 ABG Base Excess -2.5 L Art Test + O2 Delivery Device Oxygen Liter Flow FiO2 % 21.0 Sodium 133.8 L Potassium 4.35 Chloride 99.6 Carbon Dioxide 24.0 Anion Gap 14.55 BUN 26.7 H Creatinine 1.15 H Estimated GFR (MDRD) 61.00 BUN/Creatinine Ratio 23.21 Glucose 123.5 H Lactic Acid Calcium 9.50 Total Bilirubin 0.94 AST 54.5 ALT 24.4 Alkaline Phosphatase 59.7 Total Creatine Kinase 521.9 H CK-MB (CK-2) 4.390 H CK-MB (CK-2) % 0.8400 Total Protein 8.16 Albumin 4.62 Globulin 3.54 Albumin/Globulin Ratio 1.30 06/19/20 06/19/20 06/20/20 17:59 19:01 05:27 WBC RBC Hgb Hct MCV MCH MCHC RDW Coeff of Deborah Plt Count Immature Gran % (Auto) Neut % (Auto) Lymph % (Auto) Chicot % (Auto) Eos % (Auto) Baso % (Auto) Neut # (Auto) Lymph # (Auto) Chicot # (Auto) Eos # (Auto) Baso # (Auto) Immature Gran # (Auto) PT 11.8 H INR 1.21 Puncture Site Bnc O2 Saturation 93.6 L ABG pH 7.51 H* ABG pCO2 25.0 L ABG pO2 66.0 L ABG HCO3 19.9 L ABG Total CO2 20.7 L ABG Base Excess -3.1 L Art Test + O2 Delivery Device Oxygen Liter Flow 2.00 FiO2 % 28.0 Sodium Potassium Chloride Carbon Dioxide Anion Gap BUN Creatinine Estimated GFR (MDRD) BUN/Creatinine Ratio Glucose Lactic Acid 1.33 Calcium Total Bilirubin AST ALT Alkaline Phosphatase Total Creatine Kinase CK-MB (CK-2) CK-MB (CK-2) % Total Protein Albumin Globulin Albumin/Globulin Ratio 06/20/20 06/20/20 06/20/20 05:27 11:30 15:06 WBC RBC Hgb Hct MCV MCH MCHC RDW Coeff of Deborah Plt Count Immature Gran % (Auto) Neut % (Auto) Lymph % (Auto) Ch[place]ot % (Auto) Eos % (Auto) Baso % (Auto) Neut # (Auto) Lymph # (Auto) Chicot # (Auto) Eos # (Auto) Baso # (Auto) Immature Gran # (Auto) PT INR Puncture Site R rad R radial O2 Saturation 91.6 L 99.3 ABG pH 7.44 7.40 ABG pCO2 28.0 L 31.0 L ABG pO2 60.0 L 149.0 H ABG HCO3 19.0 L 19.2 L ABG Total CO2 19.9 L 20.2 L ABG Base Excess -5.2 L -5.6 L Art Test + + O2 Delivery Device Nc vapotherm Oxygen Liter Flow 4.00 40.00 FiO2 % 100.0 Sodium 132.9 L Potassium 4.78 Chloride 101.9 Carbon Dioxide 23.1 Anion Gap 12.68 BUN 24.5 H Creatinine 0.98 Estimated GFR (MDRD) 73.00 BUN/Creatinine Ratio 25.00 Glucose 192.5 H D Lactic Acid Calcium 8.95 Total Bilirubin 0.71 AST 53.3 ALT 22.2 Alkaline Phosphatase 51.9 L Total Creatine Kinase CK-MB (CK-2) CK-MB (CK-2) % Total Protein 7.15 Albumin 3.94 Globulin 3.21 Albumin/Globulin Ratio 1.22 06/20/20 06/20/20 06/20/20 16:02 16:35 16:35 WBC 10.98 H RBC 4.48 L Hgb 14.0 Hct 40.0 L MCV 89.3 MCH 31.3 H MCHC 35.0 RDW Coeff of Deborah 14.3 Plt Count 184 Immature Gran % (Auto) 1.5 Neut % (Auto) 92.2 H Lymph % (Auto) 2.6 L Ch[place] % (Auto) 3.5 Eos % (Auto) 0.0 Baso % (Auto) 0.2 Neut # (Auto) 10.1 H Lymph # (Auto) 0.3 L Ch[place] # (Auto) 0.4 Eos # (Auto) 0.0 Baso # (Auto) 0.0 Immature Gran # (Auto) 0.2 PT INR Puncture Site Rbrach O2 Saturation 95.7 ABG pH 7.45 ABG pCO2 26.0 L ABG pO2 76.0 L ABG HCO3 18.1 L ABG Total CO2 18.9 L ABG Base Excess -5.9 L Art Test O2 Delivery Device Vapo Oxygen Liter Flow FiO2 % 80.0 Sodium 134.7 Potassium 4.10 Chloride 100.0 Carbon Dioxide 23.4 Anion Gap 15.40 BUN 24.9 H Creatinine 1.04 Estimated GFR (MDRD) 68.00 BUN/Creatinine Ratio 23.94 Glucose 131.1 H D Lactic Acid Calcium 9.13 Total Bilirubin 0.77 AST 81.3 H D ALT 26.1 Alkaline Phosphatase 57.3 Total Creatine Kinase CK-MB (CK-2) CK-MB (CK-2) % Total Protein 7.73 Albumin 4.30 Globulin 3.43 Albumin/Globulin Ratio 1.25 Orders Category Date Time Status ADMIT PATIENT INPATIENT .TO [facility] (MONITORED BED) ADMISSION 06/19/20 21:49 Active ABG DRAW REQUEST Routine CARDIO 06/20/20 11:25 Completed ABG DRAW REQUEST Stat CARDIO 06/19/20 17:28 Completed ABG DRAW REQUEST Stat CARDIO 06/19/20 19:01 Completed ABG DRAW REQUEST Stat CARDIO 06/20/20 15:06 Completed ABG DRAW REQUEST Stat CARDIO 06/20/20 16:02 Completed EKG-(ED ONLY) Stat CARDIO 06/19/20 18:17 Completed METERED DOSE INHALATION Routine CARDIO 06/19/20 17:29 Completed METERED DOSE INHALATION Routine CARDIO 06/19/20 20:20 Active OXYGEN Routine CARDIO 06/19/20 17:29 Active VAPOTHERM Routine CARDIO 06/20/20 14:30 Active Notify RT of Treatment ONCE CARE 06/20/20 11:25 Active Notify RT of Treatment ONCE CARE 06/20/20 15:06 Active Notify RT of Treatment ONCE CARE 06/20/20 16:02 Active TELEMETRY MONITORING TELE CARE 06/19/20 21:51 Active REGULAR DIET DIETARY 06/20/20 Breakfast Ordered ED IV/MEDIPORT/POWERPORT .ONCE EMERGENCY 06/19/20 20:18 Active ABG Routine LAB 06/20/20 11:30 Completed ABG Stat LAB 06/19/20 17:40 Completed ABG Stat LAB 06/19/20 19:01 Completed ABG Stat LAB 06/20/20 15:06 Completed ABG Stat LAB 06/20/20 16:02 Completed CBC W/ AUTO DIFF DAILY@0600 LAB 06/21/20 06:00 Ordered CBC W/ AUTO DIFF DAILY@0600 LAB 06/22/20 06:00 Ordered CBC W/ AUTO DIFF DAILY@0600 LAB 06/23/20 06:00 Ordered CBC W/ AUTO DIFF DAILY@0600 LAB 06/24/20 06:00 Ordered CBC W/ AUTO DIFF DAILY@0600 LAB 06/25/20 06:00 Ordered CBC W/ AUTO DIFF Stat LAB 06/19/20 17:59 Completed CBC W/ AUTO DIFF Stat LAB 06/20/20 16:35 Completed CMP [COMPREHENSIVE METABOLIC PANEL] Stat LAB 06/19/20 17:59 Completed COMPREHENSIVE METABOLIC PANEL DAILY@0600 LAB 06/21/20 06:00 Ordered COMPREHENSIVE METABOLIC PANEL DAILY@0600 LAB 06/22/20 06:00 Ordered COMPREHENSIVE METABOLIC PANEL Stat LAB 06/19/20 22:16 Completed COMPREHENSIVE METABOLIC PANEL Stat LAB 06/20/20 16:35 Completed CPK [CREATINE KINASE] Stat LAB 06/19/20 17:59 Completed LACTIC ACID Stat LAB 06/19/20 17:59 Completed PT WITH INR DAILY@0600 LAB 06/21/20 06:00 Ordered PT WITH INR DAILY@0600 LAB 06/22/20 06:00 Ordered PT WITH INR DAILY@0600 LAB 06/23/20 06:00 Ordered PT WITH INR DAILY@0600 LAB 06/24/20 06:00 Ordered PT WITH INR Stat LAB 06/19/20 22:16 Completed 0.9 % Sodium Chloride [Saline Flush] MEDS 06/19/20 20:18 Active 1 syr IVF PRN PRN Acetaminophen [Tylenol] MEDS 06/19/20 18:57 Discontinued 650 mg PO ONCE STA Acetaminophen [Tylenol] MEDS 06/19/20 22:10 Active 650 mg PO Q4HR PRN Albuterol Inhaler (Single Pt) [Proair Hfa (Single MEDS 06/19/20 22:00 Discontinued Patient Use)] 2 puff IH Q4HR Albuterol Inhaler(with Spacer) [Ventolin Hfa (Per Puff- MEDS 06/19/20 17:28 Discontinued with Spacer)] 2 puff IH ONCE STA Albuterol Inhaler(with Spacer) [Ventolin Hfa (Per Puff- MEDS 06/19/20 20:18 Discontinued with Spacer)] 2 puff IH ONCE STA Albuterol Inhaler(with Spacer) [Ventolin Hfa (Per Puff- MEDS 06/20/20 02:00 Active with Spacer)] 2 puff IH RTQ4H Atorvastatin Calcium [Lipitor] MEDS 06/19/20 22:30 Active 10 mg PO BEDTIME Azithromycin [Zithromax] MEDS 06/19/20 18:15 Discontinued 500 mg PO ONCE STA Ceftriaxone/D5w 1 gm Premix [Rocephin 1 gm/50 ml D5w] MEDS 06/20/20 21:00 Active 1 gm in 50 ml IV BEDTIME Ceftriaxone/D5w 1 gm Premix [Rocephin 1 gm/50 ml D5w] MEDS 06/19/20 22:00 Discontinued 1 gm in 50 ml IV DAILY Dexamethasone Sod Phosphate [Decadron] MEDS 06/20/20 14:00 Active 6 mg IVP DAILY Dexamethasone Sod Phosphate [Decadron] MEDS 06/19/20 21:51 Discontinued 6 mg IVP ONCE STA Doxycycline Hyclate Inj [Doxy-100] 100 mg MEDS 06/19/20 22:00 Active 0.9 % Sodium Chloride [Sodium Chloride] 100 ml IV Q12HR Enoxaparin Sodium [Lovenox] MEDS 06/19/20 22:30 Active 40 mg SUBCUT DAILY Famotidine Inj [Pepcid] MEDS 06/19/20 22:30 Active 40 mg IVP Q12HR Guaifenesin/Codeine Phosphate [Robitussin AC Syrup] MEDS 06/19/20 22:10 Active 5 ml PO Q4HR PRN Guaifenesin/Dextromethorphan [Robitussin Dm Syrup] MEDS 06/19/20 18:16 Discontinued 10 ml PO ONCE STA Ipratropium Inhaler(Spacer) [Atrovent Hfa Inhaler (Per MEDS 06/19/20 20:18 Discontinued Puff-with Spacer)] 2 puff IH ONCE STA Ipratropium Inhaler(Spacer) [Atrovent Hfa Inhaler (Per MEDS 06/20/20 06:00 Active Puff-with Spacer)] 2 puff IH RTQID Remdesivir Solution [Remdesivir] 100 mg MEDS 06/21/20 09:00 Active 0.9 % Sodium Chloride [Sodium Chloride] 230 ml IV DAILY Remdesivir Solution [Remdesivir] 100 mg MEDS 06/20/20 09:00 Discontinued 0.9 % Sodium Chloride [Sodium Chloride] 80 ml IV DAILY Remdesivir Solution [Remdesivir] 200 mg MEDS 06/19/20 21:51 Discontinued 0.9 % Sodium Chloride [Sodium Chloride] 210 ml IV ONCE Remdesivir Solution [Remdesivir] 200 mg MEDS 06/20/20 08:30 Discontinued 0.9 % Sodium Chloride [Sodium Chloride] 210 ml IV ONCE Sodium Chloride 0.9% [Sodium Chloride] 500 ml MEDS 06/19/20 20:18 Discontinued IV BOLUS ruxolitinib [Jakafi] MEDS 06/19/20 23:15 Active 10 mg PO BID trospium MEDS 06/19/20 23:15 Active 20 mg PO BID RESUSCITATION STATUS Routine OTHERS 06/19/20 23:28 Ordered CHEST, 1V AP ONLY Stat RADS 06/19/20 17:29 Completed CHEST, 1V AP ONLY Stat RADS 06/20/20 15:57 Completed Medications Generic Name Dose Route Start Last Admin Trade Name Freq PRN Reason Stop Dose Admin Acetaminophen 650 mg 06/19/20 22:10 Acetaminophen 325 Mg Tablet PO Q4HR PRN Fever >101 Albuterol Sulfate 2 puff 06/20/20 02:00 06/20/20 17:15 Albuterol Sulfate (Ventolin Hfa) 18 Gm 1 Puff With Spacer IH 2 puff RTQ4H LILLIAN Administration Atorvastatin Calcium 10 mg 06/19/20 22:30 06/20/20 00:11 Atorvastatin Calcium 10 Mg Tablet PO 10 mg BEDTIME LILLIAN Administration Dexamethasone Sodium Phosphate 6 mg 06/20/20 14:00 Dexamethasone Sod Phos 10 Mg/Ml Inj IVP DAILY LILLIAN Enoxaparin Sodium 40 mg 06/19/20 22:30 06/20/20 09:16 Enoxaparin Sodium 40 Mg/0.4 Ml Syr SUBCUT 40 mg DAILY LILLIAN Administration Famotidine 40 mg 06/19/20 22:30 06/20/20 09:15 Famotidine Inj 20 Mg/2 Ml Vial IVP 40 mg Q12HR LILLIAN Administration Guaifenesin/Codeine Phosphate 5 ml 06/19/20 22:10 06/20/20 14:40 Guaifenesin/Codeine 100/10 Mg/5 Ml Syrup Ud Cup PO 5 ml Q4HR PRN Administration Cough Doxycycline Hyclate 100 mg/ 100 mls @ 50 mls/hr 06/19/20 22:00 06/20/20 11:58 Sodium Chloride IV 06/22/20 21:59 50 mls/hr Q12HR LILLIAN Administration CEFTRIAXONE/D5W 1 GM PREMIX 1 gm in 50 mls @ 75 mls/hr 06/20/20 21:00 Rocephin 1 Gm/50 Ml D5w IV 06/22/20 21:59 BEDTIME LILLIAN REMDESIVIR SOLUTION 100 mg/ 250 mls @ 250 mls/hr 06/21/20 09:00 Sodium Chloride IV 06/24/20 10:00 DAILY LILLIAN Ipratropium [place] 2 puff 06/20/20 06:00 06/20/20 14:40 Ipratropium [place] 12.9 Gm Hfa Inhaler Per Puff With Spacer IH 2 puff RTQID LILLIAN Administration Non-Formulary Medication 10 mg 06/19/20 23:15 06/20/20 09:15 Ruxolitinib [Jakafi] PO 10 mg BID LILLIAN Administration Non-Formulary Medication 20 mg 06/19/20 23:15 06/20/20 09:15 Trospium PO 20 mg BID LILLIAN Administration Sodium Chloride 1 syr 06/19/20 20:18 06/19/20 21:14 0.9% Sodium Chloride 10 Ml Disp.Syrin IVF 1 syr PRN PRN Administration To flush IV Discontinued Medications Generic Name Dose Route Start Last Admin Trade Name Freq PRN Reason Stop Dose Admin Acetaminophen 650 mg 06/19/20 18:57 06/19/20 20:53 Acetaminophen 325 Mg Tablet PO 06/19/20 18:58 650 mg ONCE STA Administration Albuterol Sulfate 2 puff 06/19/20 17:28 06/19/20 18:12 Albuterol Sulfate (Ventolin Hfa) 18 Gm 1 Puff With Spacer IH 06/19/20 17:29 2 puff ONCE STA Administration Albuterol Sulfate 2 puff 06/19/20 20:18 06/19/20 21:09 Albuterol Sulfate (Ventolin Hfa) 18 Gm 1 Puff With Spacer IH 06/19/20 20:19 2 puff ONCE STA Administration Albuterol Sulfate 2 puff 06/19/20 22:00 06/19/20 22:12 Albuterol Sulfate 8.5 Gm Inhaler (Single Patient Use) IH Not Given Q4HR [facility] Azithromycin 500 mg 06/19/20 18:15 06/19/20 18:35 Azithromycin 250 Mg Tablet PO 06/19/20 18:16 500 mg ONCE STA Administration Dexamethasone Sodium Phosphate 6 mg 06/19/20 21:51 06/19/20 22:46 Dexamethasone Sod Phos 10 Mg/Ml Inj IVP 06/19/20 21:52 6 mg ONCE STA Administration Guaifenesin/Dextromethorphan 10 ml 06/19/20 18:16 06/19/20 18:36 Guaifenesin/Dextromethorphan 200/20 Mg/10 Ml Cup PO 06/19/20 18:17 10 ml ONCE STA Administration Sodium Chloride 500 mls @ 500 mls/hr 06/19/20 20:18 06/19/20 21:10 Sodium Chloride IV 06/19/20 21:17 500 mls/hr BOLUS STA Administration CEFTRIAXONE/D5W 1 GM PREMIX 1 gm in 50 mls @ 75 mls/hr 06/19/20 22:00 06/20/20 00:12 Rocephin 1 Gm/50 Ml D5w IV 06/22/20 21:59 75 mls/hr DAILY LILLIAN Administration REMDESIVIR POWDER 200 mg/ 250 mls @ 125 mls/hr 06/19/20 21:51 Sodium Chloride IV 06/19/20 23:50 ONCE STA REMDESIVIR POWDER 100 mg/ 100 mls @ 100 mls/hr 06/20/20 09:00 06/20/20 09:51 Sodium Chloride IV 06/25/20 08:59 Not Given DAILY LILLIAN REMDESIVIR POWDER 200 mg/ 250 mls @ 125 mls/hr 06/20/20 08:30 06/20/20 09:17 Sodium Chloride IV 06/20/20 10:29 125 mls/hr ONCE ONE Administration Ipratropium [place] 2 puff 06/19/20 20:18 06/19/20 21:09 Ipratropium [place] 12.9 Gm Hfa Inhaler Per Puff With Spacer IH 06/19/20 20:19 2 puff ONCE STA Administration Assessment (1) Acute respiratory failure: Status: Acute Code(s): J96.00 - Acute respiratory failure, unspecified whether with hypoxia or hypercapnia SNOMED Code(s): 33801416 Qualifiers: Respiratory failure complication: hypoxia Qualified Code(s): J96.01 - Acute respiratory failure with hypoxia (2) Pneumonia due to 2019-nCoV: Status: Acute Code(s): U07.1 - COVID-19; J12.89 - Other viral pneumonia SNOMED Code(s): 185661203330717517 Plan Plan: antbx with rocephin, doxycycline, iv steroids, Remdesivir, pepcid, statin. has been kept up to date and she is aware of poor prognosis. I spoke dr weston covering dr burroughs and he suggested continuing the Jakafi. Dvt prophylaxis with lovenox. Again at this time there are no beds available for transfer in [place], [facility], [place], [facility] or [place]. My understanding is we have a waiting list option at [facility] so we will explore this option.
[2020-06-20] MEDS: DECADRON IVP SCH (17:41)
[2020-06-20] MEDS: ROCEPHIN 1 GM/50 ML D5W 1 GM/50 ML BAG IV SCH (20:11)
[2020-06-21] MEDS: VENTOLIN HFA (PER PUFF-WITH SPACER) IH SCH ×6 (01:04→22:01)
[2020-06-21 04:12] LABS: ABG PH 7.38 (7.35-7.45)
[2020-06-21 04:13] LABS: ABG HCO3 20.1 (22.0-26.0); ABG TCO2 21.1 (22.0-28.0)
[2020-06-21] MEDS: ROBITUSSIN AC SYRUP PO PRN ×3 (04:30→20:14)
[2020-06-21] MEDS: ATROVENT HFA INHALER (PER PUFF-WITH SPACER) IH SCH ×4 (04:55→22:01)
[2020-06-21 06:21] LABS: BASOPHILS % (AUTO) 0.1 % (0.0-3.0); HEMATOCRIT 38.3 % (42.0-52.0); HEMOGLOBIN 13.4 g/dl (14.0-18.0); IMMATURE GRANULOCYTE # (AUTO) 0.1 (0.0-1.0); IMMATURE GRANULOCYTE % (AUTO) 1.1 % (0.0-5.0); LYMPHOCYTES # (AUTO) 0.2 K/uL (0.60-3.4); LYMPHOCYTES % (AUTO) 3.3 (10.0-50.0); MEAN CORPUSCULAR HEMOGLOBIN 31.2 pg (27.0-31.0); MEAN CORPUSCULAR VOLUME 89.1 fl (80.0-94.0); MONOCYTES # (AUTO) 0.2 K/uL (0.4-2.0); NEUTROPHILS # (AUTO) 6.5 K/ul (2.0-6.9); NEUTROPHILS % (AUTO) 92.5 % (42.2-75.2); PLATELET COUNT 143 10^3/uL (140-440); RDW COEFFICIENT OF VARIATION 14.5 % (11.6-14.8); WHITE BLOOD COUNT 7.06 K/ul (4.2-10.2)
[2020-06-21 06:26] LABS: ALBUMIN 4.01 g/dL (3.5-5.0); ALKALINE PHOSPHATASE 49.8 U/L (56-119); ASPARTATE AMINO TRANSFERASE 77.8 U/L (17-59); BILIRUBIN,TOTAL 0.78 mg/dL (0.2-1.3); BLOOD UREA NITROGEN 24.3 mg/dL (9-20); CALCIUM 9.03 mg/dL (8.4-10.2); CARBON DIOXIDE 23.2 mmol/L (22-30.0); CHLORIDE 100.4 mmol/L (98-107); CREATININE 1.02 mg/dL (0.60-1.10); GLUCOSE 154.2 mg/dL (74-106); POTASSIUM 4.31 mmol/L (3.5-5.1); SODIUM 133.7 mmol/L (134.5-145); TOTAL PROTEIN 7.22 g/dL (6.3-8.2)
[2020-06-21 06:33] LABS: PROTHROMBIN TIME 12.6 SEC (9.3-11.0)
--- NOTE | 2020-06-21 07:09 | PCM.PROG ---
Date Seen by Provider: 06/21/20 Time Seen by Provider: 07:04 Subjective: Mr Jain is feeling much better---less jittery and shaky--alert and talkative---he does have desats with any movement Objective: Vitals: T=98.2 F, P=94, R=22, PL=386/71, SPO2=91 HEENT: [perrla] Neck: supple[] Lungs: [rhonchi] CVS: [rrr] Abdomen: [soft] Extremities: [no cyanosis] Neurological: [intact] Skin: [no rashes ] Lab/Tests/Diagnostic Imaging: [labs reviewed----cxr pending] (1) Acute respiratory failure: Status: Acute Code(s): J96.00 - Acute respiratory failure, unspecified whether with hypoxia or hypercapnia SNOMED Code(s): 22368884 (2) Pneumonia due to 2019-nCoV: Status: Acute Code(s): U07.1 - COVID-19; J12.89 - Other viral pneumonia SNOMED Code(s): 481296220603555390 Plan: continue current meds --following oxygen on vapotherm --no transfer beds available---
[2020-06-21] MEDS ORDERED: REMDESIVIR 100 MG in SODIUM CHLORIDE 80 ML IV SCH (09:00)
[2020-06-21] MEDS: REMDESIVIR 100 MG in SODIUM CHLORIDE 230 ML IV SCH (09:37)
[2020-06-21] MEDS: LOVENOX SUBCUT SCH (09:37)
[2020-06-21] MEDS: RUXOLITINIB 10 MG PO SCH ×2 (09:45→20:21)
[2020-06-21] MEDS: TROSPIUM 20 MG PO SCH ×2 (09:45→20:20)
--- NOTE | 2020-06-21 09:46 | DI ---
EXAM: One-view chest HISTORY: Follow up, Covid, Pneumonia TECHNIQUE: Single frontal view of the chest was obtained. Comparison 06/20/2020. FINDINGS: The heart is stable size. Infiltrates are again seen throughout the lungs bilaterally. T here is no pleural separation. The pulmonary vasculature appears normal. IMPRESSION: Stable appearance of diffuse bilateral pulmonary infiltrates.
[2020-06-21] MEDS: DECADRON IVP SCH (11:01)
[2020-06-21] MEDS: DOXY-100 100 MG in SODIUM CHLORIDE 100 ML IV SCH ×2 (11:02→21:54)
[2020-06-21] MEDS: PEPCID IVP SCH ×2 (11:02→21:12)
[2020-06-21] MEDS: ROCEPHIN 1 GM/50 ML D5W 1 GM/50 ML BAG IV SCH (20:14)
[2020-06-21] MEDS: LIPITOR PO SCH (20:14)
[2020-06-22] MEDS: VENTOLIN HFA (PER PUFF-WITH SPACER) IH SCH ×6 (01:15→21:31)
[2020-06-22] MEDS: ROBITUSSIN AC SYRUP PO PRN ×3 (03:44→15:20)
[2020-06-22 05:29] LABS: HEMATOCRIT 36.4 % (42.0-52.0); HEMOGLOBIN 12.8 g/dl (14.0-18.0); IMMATURE GRANULOCYTE # (AUTO) 0.1 (0.0-1.0); IMMATURE GRANULOCYTE % (AUTO) 0.9 % (0.0-5.0); LYMPHOCYTES # (AUTO) 0.3 K/uL (0.60-3.4); LYMPHOCYTES % (AUTO) 3.9 (10.0-50.0); MEAN CORPUSCULAR HEMOGLOBIN 31.2 pg (27.0-31.0); MEAN CORPUSCULAR HGB CONC 35.2 (31.8-35.4); MEAN CORPUSCULAR VOLUME 88.8 fl (80.0-94.0); MONOCYTES # (AUTO) 0.3 K/uL (0.4-2.0); MONOCYTES % (AUTO) 4.5 (0-10); NEUTROPHILS # (AUTO) 5.9 K/ul (2.0-6.9); NEUTROPHILS % (AUTO) 90.7 % (42.2-75.2); PLATELET COUNT 155 10^3/uL (140-440); RDW COEFFICIENT OF VARIATION 14.5 % (11.6-14.8); WHITE BLOOD COUNT 6.49 K/ul (4.2-10.2)
[2020-06-22 05:42] LABS: ALANINE AMINOTRANSFERASE 31.1 U/L (0-50); ALBUMIN 3.53 g/dL (3.5-5.0); ALKALINE PHOSPHATASE 50.6 U/L (56-119); ASPARTATE AMINO TRANSFERASE 67.3 U/L (17-59); BILIRUBIN,TOTAL 0.62 mg/dL (0.2-1.3); BLOOD UREA NITROGEN 22.9 mg/dL (9-20); CALCIUM 8.87 mg/dL (8.4-10.2); CARBON DIOXIDE 25.7 mmol/L (22-30.0); CHLORIDE 101.9 mmol/L (98-107); CREATININE 0.84 mg/dL (0.60-1.10); GLUCOSE 141.2 mg/dL (74-106); POTASSIUM 4.23 mmol/L (3.5-5.1); SODIUM 134.1 mmol/L (134.5-145); TOTAL PROTEIN 6.65 g/dL (6.3-8.2)
[2020-06-22 05:49] LABS: PROTHROMBIN TIME 13.3 SEC (9.3-11.0)
[2020-06-22] MEDS: ATROVENT HFA INHALER (PER PUFF-WITH SPACER) IH SCH ×4 (05:50→21:31)
[2020-06-22 05:57] LABS: ABG PH 7.43 (7.35-7.45)
[2020-06-22 06:01] LABS: ABG BASE EXCESS -1.7 (-2.0-2.0); ABG HCO3 22.6 (22.0-26.0); ABG TCO2 23.6 (22.0-28.0)
[2020-06-22] MEDS: LOVENOX SUBCUT SCH (09:17)
[2020-06-22] MEDS: DOXY-100 100 MG in SODIUM CHLORIDE 100 ML IV SCH ×2 (09:17→22:05)
[2020-06-22] MEDS: RUXOLITINIB 10 MG PO SCH ×2 (09:18→21:33)
[2020-06-22] MEDS: TROSPIUM 20 MG PO SCH ×2 (09:18→21:33)
[2020-06-22] MEDS: PEPCID IVP SCH ×2 (11:05→21:34)
[2020-06-22] MEDS: DECADRON IVP SCH (11:05)
[2020-06-22] MEDS: REMDESIVIR 100 MG in SODIUM CHLORIDE 230 ML IV SCH (11:28)
--- NOTE | 2020-06-22 13:40 | PCM.PROG ---
Date Seen by Provider: 06/22/20 Time Seen by Provider: 13:37 Subjective: Mr Jain says he is feeling better---resp able to lower oxygen to 70% on v mask----he is requesting bid Boost supplement Objective: Vitals: T=98.7 F, P=81, R=20, UJ=416/62, SPO2=94 HEENT: [clear] Neck: [supple] Lungs: [scattered rhonchi and rales] CVS: [rrr] Abdomen: [soft nt bs+] Extremities: no defomiity] Neurological: [intact] Skin: [no rashes] Lab/Tests/Diagnostic Imaging: [reviewed] (1) Acute respiratory failure: Status: Acute Code(s): J96.00 - Acute respiratory failure, unspecified whether with hypoxia or hypercapnia SNOMED Code(s): 42841770 (2) Pneumonia due to 2019-nCoV: Status: Acute Code(s): U07.1 - COVID-19; J12.89 - Other viral pneumonia SNOMED Code(s): 789652123438982265 Plan: ok for Boost---monitoring oximetry--check cxr in am--d/w with the patient
[2020-06-22] MEDS: LIPITOR PO SCH (21:18)
[2020-06-22] MEDS: ROCEPHIN 1 GM/50 ML D5W 1 GM/50 ML BAG IV SCH (21:20)
[2020-06-23] MEDS: ROBITUSSIN AC SYRUP PO PRN ×2 (00:46→08:51)
[2020-06-23] MEDS: VENTOLIN HFA (PER PUFF-WITH SPACER) IH SCH ×6 (01:03→21:00)
[2020-06-23 05:44] LABS: BASOPHILS % (AUTO) 0.1 % (0.0-3.0); HEMATOCRIT 37.5 % (42.0-52.0); HEMOGLOBIN 13.1 g/dl (14.0-18.0); IMMATURE GRANULOCYTE # (AUTO) 0.1 (0.0-1.0); IMMATURE GRANULOCYTE % (AUTO) 1.1 % (0.0-5.0); LYMPHOCYTES # (AUTO) 0.3 K/uL (0.60-3.4); LYMPHOCYTES % (AUTO) 3.8 (10.0-50.0); MEAN CORPUSCULAR HGB CONC 34.9 (31.8-35.4); MEAN CORPUSCULAR VOLUME 88.9 fl (80.0-94.0); MONOCYTES # (AUTO) 0.3 K/uL (0.4-2.0); MONOCYTES % (AUTO) 4.4 (0-10); NEUTROPHILS # (AUTO) 6.4 K/ul (2.0-6.9); NEUTROPHILS % (AUTO) 90.6 % (42.2-75.2); PLATELET COUNT 164 10^3/uL (140-440); RDW COEFFICIENT OF VARIATION 14.4 % (11.6-14.8); RED BLOOD COUNT 4.22 10^6/ul (4.70-6.10); WHITE BLOOD COUNT 7.05 K/ul (4.2-10.2)
[2020-06-23] MEDS: ATROVENT HFA INHALER (PER PUFF-WITH SPACER) IH SCH ×4 (06:13→21:00)
[2020-06-23 06:52] LABS: ALANINE AMINOTRANSFERASE 33.5 U/L (0-50); ALBUMIN 3.51 g/dL (3.5-5.0); ALKALINE PHOSPHATASE 50.4 U/L (56-119); ASPARTATE AMINO TRANSFERASE 61.6 U/L (17-59); BILIRUBIN,TOTAL 0.73 mg/dL (0.2-1.3); BLOOD UREA NITROGEN 23.3 mg/dL (9-20); CALCIUM 8.87 mg/dL (8.4-10.2); CARBON DIOXIDE 26.6 mmol/L (22-30.0); CHLORIDE 102.3 mmol/L (98-107); CREATININE 0.83 mg/dL (0.60-1.10); GLUCOSE 143.2 mg/dL (74-106); POTASSIUM 4.52 mmol/L (3.5-5.1); SODIUM 134.6 mmol/L (134.5-145); TOTAL PROTEIN 6.68 g/dL (6.3-8.2)
[2020-06-23 07:03] LABS: PROTHROMBIN TIME 12.8 SEC (9.3-11.0)
[2020-06-23] MEDS: LOVENOX SUBCUT SCH (08:51)
[2020-06-23] MEDS: RUXOLITINIB 10 MG PO SCH ×2 (08:52→21:28)
[2020-06-23] MEDS: TROSPIUM 20 MG PO SCH ×2 (08:52→21:28)
[2020-06-23] MEDS: REMDESIVIR 100 MG in SODIUM CHLORIDE 230 ML IV SCH (09:13)
[2020-06-23] MEDS: PEPCID IVP SCH ×2 (09:22→21:55)
[2020-06-23] MEDS: DECADRON IVP SCH (09:22)
--- NOTE | 2020-06-23 09:33 | DI ---
EXAM: Single view of the chest HISTORY: Follow up pneumonia. COMPARISON: Chest x-ray 06/21/2020 and multiple priors FINDINGS: Cardiomediastinal silhouette is unchanged. There is no pneumothorax or effusion. There is patchy bilateral ground-glass opacities throughout both lungs. The osseous structures are unremarka ble. IMPRESSION: Patchy bilateral interstitial ground-glass opacities are relatively unchanged.
[2020-06-23] MEDS: DOXY-100 100 MG in SODIUM CHLORIDE 100 ML IV SCH ×2 (10:24→22:45)
[2020-06-23] MEDS ORDERED: ZOFRAN 4 MG/2 ML IVP PRN (11:05)
[2020-06-23 18:02] LABS: ABG PH 7.44 (7.35-7.45)
[2020-06-23 18:04] LABS: ABG BASE EXCESS -0.4 (-2.0-2.0); ABG HCO3 23.8 (22.0-26.0); ABG OXYGEN SATURATION 90.8 % (95-100); ABG TCO2 24.9 (22.0-28.0)
[2020-06-23] MEDS ORDERED: ROCEPHIN 1 GM/50 ML D5W 1 GM/50 ML BAG IV SCH (21:00)
[2020-06-23] MEDS: LIPITOR PO SCH (21:25)
[2020-06-24] MEDS: VENTOLIN HFA (PER PUFF-WITH SPACER) IH SCH ×6 (01:02→21:15)
[2020-06-24] MEDS: ATROVENT HFA INHALER (PER PUFF-WITH SPACER) IH SCH ×4 (04:43→21:15)
[2020-06-24 05:09] LABS: HEMATOCRIT 38.3 % (42.0-52.0); HEMOGLOBIN 13.4 g/dl (14.0-18.0); MEAN CORPUSCULAR HEMOGLOBIN 31.4 pg (27.0-31.0); MEAN CORPUSCULAR VOLUME 89.7 fl (80.0-94.0); PLATELET COUNT 168 10^3/uL (140-440); RDW COEFFICIENT OF VARIATION 14.6 % (11.6-14.8); RED BLOOD COUNT 4.27 10^6/ul (4.70-6.10); WHITE BLOOD COUNT 6.66 K/ul (4.2-10.2)
[2020-06-24 05:17] LABS: ANISOCYTOSIS NOT PRESENT (NOT PRESENT)
[2020-06-24 05:26] LABS: ALANINE AMINOTRANSFERASE 33.2 U/L (0-50); ALBUMIN 3.57 g/dL (3.5-5.0); ALKALINE PHOSPHATASE 56.7 U/L (56-119); ASPARTATE AMINO TRANSFERASE 57.1 U/L (17-59); BILIRUBIN,TOTAL 0.69 mg/dL (0.2-1.3); BLOOD UREA NITROGEN 20.6 mg/dL (9-20); CALCIUM 8.93 mg/dL (8.4-10.2); CARBON DIOXIDE 28.3 mmol/L (22-30.0); CHLORIDE 101.9 mmol/L (98-107); CREATININE 0.87 mg/dL (0.60-1.10); GLUCOSE 124.9 mg/dL (74-106); POTASSIUM 4.4 mmol/L (3.5-5.1); SODIUM 135.4 mmol/L (134.5-145); TOTAL PROTEIN 6.67 g/dL (6.3-8.2)
[2020-06-24] MEDS: ROBITUSSIN AC SYRUP PO PRN ×3 (06:07→21:36)
[2020-06-24 06:39] LABS: PROTHROMBIN TIME 12.3 SEC (9.3-11.0)
[2020-06-24] MEDS: LOVENOX SUBCUT SCH (08:35)
[2020-06-24] MEDS: RUXOLITINIB 10 MG PO SCH ×2 (08:36→21:38)
[2020-06-24] MEDS: TROSPIUM 20 MG PO SCH ×2 (08:36→21:39)
[2020-06-24] MEDS ORDERED: DOXY-100 100 MG in SODIUM CHLORIDE 100 ML IV SCH (09:00)
--- NOTE | 2020-06-24 09:53 | PCM.PROG ---
Date Seen by Provider: 06/23/20 Time Seen by Provider: 09:51 Subjective: feeling better but did note nausea Objective: Vitals: T=97.6 F, P=87, R=16, AP=960/59, SPO2=80 HEENT: [perrla] Neck: [supple] Lungs: [rhonchi] CVS: [rrr] Abdomen: [soft nt] Extremities: [no deformity] Neurological: [intact] Skin: [no rashes] Lab/Tests/Diagnostic Imaging: [reviewed] (1) Acute respiratory failure: Status: Acute Code(s): J96.00 - Acute respiratory failure, unspecified whether with hypoxia or hypercapnia SNOMED Code(s): 61096636 (2) Pneumonia due to 2019-nCoV: Status: Acute Code(s): U07.1 - COVID-19; J12.89 - Other viral pneumonia SNOMED Code(s): 850260582327649807 Plan: will try to wean vapotherm today
--- NOTE | 2020-06-24 09:56 | PCM.PROG ---
Date Seen by Provider: 06/24/20 Time Seen by Provider: 09:54 Subjective: nausea better but not eating much --oxygen somewhat low---but cough is much better Objective: Vitals: T=97.6 F, P=87, R=16, IL=880/59, SPO2=80 HEENT: [pella] Neck: [supple] Lungs: [scattered rhonci] CVS: [rrr] Abdomen: [soft nt] Extremities: [no deformity] Neurological: [intact] Skin: [no rashes] Lab/Tests/Diagnostic Imaging: [] (1) Acute respiratory failure: Status: Acute Code(s): J96.00 - Acute respiratory failure, unspecified whether with hypoxia or hypercapnia SNOMED Code(s): 09381719 (2) Pneumonia due to 2019-nCoV: Status: Acute Code(s): U07.1 - COVID-19; J12.89 - Other viral pneumonia SNOMED Code(s): [id number] Plan: will reasses after vapotherm adjustment---transfer still not viable due to no beds---
[2020-06-24] MEDS: REMDESIVIR 100 MG in SODIUM CHLORIDE 230 ML IV SCH (14:58)
[2020-06-24] MEDS: PEPCID IVP SCH ×2 (15:12→20:35)
[2020-06-24] MEDS: DECADRON IVP SCH (15:12)
[2020-06-24] MEDS: MAXIPIME 2 GM/50 ML D5W 2 GM/50 ML BAG IV SCH ×2 (16:14→21:36)
[2020-06-24] MEDS ORDERED: VANCOMYCIN 1 GM in SODIUM CHLORIDE 250 ML IV SCH (21:00)
[2020-06-24] MEDS: LIPITOR PO SCH (21:36)
[2020-06-24] MEDS: SYMBICORT 160-4.5 MCG INHALER IH SCH (21:44)
[2020-06-24] MEDS: VANCOMYCIN 1.5 GRAM/300 ML PREMIX 1.5 GM/300 ML BAG IV SCH (22:47)
[2020-06-25] MEDS: VENTOLIN HFA (PER PUFF-WITH SPACER) IH SCH ×6 (01:05→21:15)
[2020-06-25 04:56] LABS: ABG BASE EXCESS -1.1 (-2.0-2.0); ABG HCO3 23.2 (22.0-26.0); ABG PH 7.43 (7.35-7.45); ABG TCO2 24.3 (22.0-28.0)
[2020-06-25] MEDS: ATROVENT HFA INHALER (PER PUFF-WITH SPACER) IH SCH ×4 (04:58→21:15)
[2020-06-25] MEDS: ROBITUSSIN AC SYRUP PO PRN ×2 (04:59→20:52)
[2020-06-25] MEDS: MAXIPIME 2 GM/50 ML D5W 2 GM/50 ML BAG IV SCH ×3 (05:31→20:41)
--- NOTE | 2020-06-25 06:35 | PCM.PROG ---
Date Seen by Provider: 06/25/20 Time Seen by Provider: 06:31 Subjective: Cruz is feeling much better---more awake and alert and cough is productive now Objective: Vitals: T=98.1 F, P=88, R=18, NT=440/62, SPO2=89 HEENT: [perrla] Neck: [supple] Lungs: [clear] CVS: rrr[rrr] Abdomen: [] Extremities:soft nt [] Neurological: intct[] Skin: [clear] Lab/Tests/Diagnostic Imaging: [pending] (1) Acute respiratory failure: Status: Acute Code(s): J96.00 - Acute respiratory failure, unspecified whether with hypoxia or hypercapnia SNOMED Code(s): 18389561 (2) Pneumonia due to 2019-nCoV: Status: Acute Code(s): U07.1 - COVID-19; J12.89 - Other viral pneumonia SNOMED Code(s): [id number] Plan: he is looking much better---resp working wiht Vapother[employer] to get him to a nasal cannula---spoke with dr rosa about echo to make sure no cardiomyopathy from covid 19 virus
[2020-06-25 08:46] LABS: BASOPHILS % (AUTO) 0.2 % (0.0-3.0); EOSINOPHILS % (AUTO) 0.4 % (0.0-7.0); HEMATOCRIT 36.5 % (42.0-52.0); HEMOGLOBIN 12.6 g/dl (14.0-18.0); IMMATURE GRANULOCYTE # (AUTO) 0.1 (0.0-1.0); IMMATURE GRANULOCYTE % (AUTO) 2.4 % (0.0-5.0); LYMPHOCYTES # (AUTO) 0.2 K/uL (0.60-3.4); MEAN CORPUSCULAR HEMOGLOBIN 31.3 pg (27.0-31.0); MEAN CORPUSCULAR HGB CONC 34.5 (31.8-35.4); MEAN CORPUSCULAR VOLUME 90.8 fl (80.0-94.0); MONOCYTES # (AUTO) 0.2 K/uL (0.4-2.0); MONOCYTES % (AUTO) 3.7 (0-10); NEUTROPHILS # (AUTO) 4.4 K/ul (2.0-6.9); NEUTROPHILS % (AUTO) 89.6 % (42.2-75.2); PLATELET COUNT 137 10^3/uL (140-440); RDW COEFFICIENT OF VARIATION 14.4 % (11.6-14.8); RED BLOOD COUNT 4.02 10^6/ul (4.70-6.10); WHITE BLOOD COUNT 4.93 K/ul (4.2-10.2)
[2020-06-25 08:58] LABS: ALANINE AMINOTRANSFERASE 27.3 U/L (0-50); ALBUMIN 3.37 g/dL (3.5-5.0); ALKALINE PHOSPHATASE 50.3 U/L (56-119); ASPARTATE AMINO TRANSFERASE 41.4 U/L (17-59); BILIRUBIN,TOTAL 1.06 mg/dL (0.2-1.3); BLOOD UREA NITROGEN 19.7 mg/dL (9-20); CALCIUM 8.61 mg/dL (8.4-10.2); CARBON DIOXIDE 22.1 mmol/L (22-30.0); CHLORIDE 103.3 mmol/L (98-107); CREATININE 0.74 mg/dL (0.60-1.10); POTASSIUM 4.04 mmol/L (3.5-5.1); SODIUM 133.1 mmol/L (134.5-145); TOTAL PROTEIN 6.42 g/dL (6.3-8.2)
[2020-06-25 09:33] LABS: LYMPHOCYTES % (AUTO) 3.7 (10.0-50.0)
[2020-06-25] MEDS: LOVENOX SUBCUT SCH (09:35)
[2020-06-25] MEDS: PREDNISONE PO SCH (09:35)
[2020-06-25] MEDS: RUXOLITINIB 10 MG PO SCH ×2 (09:46→20:45)
[2020-06-25] MEDS: SYMBICORT 160-4.5 MCG INHALER IH SCH ×2 (09:46→20:46)
[2020-06-25] MEDS: TROSPIUM 20 MG PO SCH ×2 (09:46→20:45)
[2020-06-25] MEDS: PEPCID IVP SCH ×2 (09:57→20:25)
--- NOTE | 2020-06-25 10:49 | DI ---
EXAM: Chest one view HISTORY: Follow up pneumonia COMPARISON: 06/23/2020 TECHNIQUE: Single view of the chest was performed FINDINGS: Multifocal bilateral consolidation, similar to mildly increased. No large pleural effusio n. No visible pneumothorax. Heart mildly enlarged. Mediastinal contour unchanged. Old right clavi cular fracture. IMPRESSION: Multifocal bilateral pneumonia, similar to mildly increased.
[2020-06-25] MEDS: VANCOMYCIN 1.5 GRAM/300 ML PREMIX 1.5 GM/300 ML BAG IV SCH ×2 (12:16→21:59)
[2020-06-25] MEDS: LIPITOR PO SCH (20:41)
[2020-06-26] MEDS: ROBITUSSIN AC SYRUP PO PRN ×2 (01:44→22:14)
[2020-06-26] MEDS: VENTOLIN HFA (PER PUFF-WITH SPACER) IH SCH ×6 (02:00→22:15)
[2020-06-26] MEDS: ATROVENT HFA INHALER (PER PUFF-WITH SPACER) IH SCH ×4 (04:25→18:36)
[2020-06-26] MEDS: MAXIPIME 2 GM/50 ML D5W 2 GM/50 ML BAG IV SCH ×3 (05:16→22:12)
[2020-06-26 05:51] LABS: ABG BASE EXCESS -1.4 (-2.0-2.0); ABG HCO3 21.8 (22.0-26.0); ABG TCO2 22.7 (22.0-28.0)
[2020-06-26 05:52] LABS: ABG OXYGEN SATURATION 94.7 % (95-100)
[2020-06-26] MEDS: LOVENOX SUBCUT SCH (09:34)
[2020-06-26] MEDS: PREDNISONE PO SCH (09:34)
[2020-06-26] MEDS: SYMBICORT 160-4.5 MCG INHALER IH SCH ×2 (09:35→22:22)
[2020-06-26] MEDS: VANCOMYCIN 1.5 GRAM/300 ML PREMIX 1.5 GM/300 ML BAG IV SCH ×2 (09:35→23:12)
[2020-06-26] MEDS: TROSPIUM 20 MG PO SCH ×2 (09:35→22:23)
[2020-06-26] MEDS: RUXOLITINIB 10 MG PO SCH ×2 (09:36→22:23)
[2020-06-26] MEDS: PEPCID IVP SCH ×2 (11:08→20:35)
--- NOTE | 2020-06-26 15:04 | PCM.DC ---
Final Diagnosis: acute resp failure, pneumonia due to covid 19 viurs (1) Acute respiratory failure: Status: Acute Code(s): J96.00 - Acute respiratory failure, unspecified whether with hypoxia or hypercapnia SNOMED Code(s): 94453261 Qualifiers: Respiratory failure complication: hypoxia Qualified Code(s): J96.01 - Acute respiratory failure with hypoxia (2) Pneumonia due to 2019-nCoV: Status: Acute Code(s): U07.1 - COVID-19; J12.89 - Other viral pneumonia SNOMED Code(s): 400022369990282602 Reason for Hospitalization: this patient was found to be hypoxic with bilateral pneumona and despite iv steroids, remdesivir and antabx he contiued with signfiican hypoxia and could not be weaned from vapotherm without significan hypoxia. an echo was ordered but declined by the internet site designer due to patients risk to other staff. [facility] did accept him in transfer to the service of dr rosa. Prognosis at Discharge: fair Medications at Discharge: Ambulatory Orders Medication Instructions Recorded gzivilicherk-wocu-pxlwd acid 1 tab PO DAILY 06/19/20 [Centrum] ruxolitinib [Jakafi] 10 mg PO BID 06/19/20 trospium 20 mg PO BID 06/19/20 Lab/Diagnostics: labs remained stable Education Provided to Patient and Family: he was educated about the covid virus Follow-ups: with me prn Discharge Disposition: Transfer Hospital Course: as above, he remained hemodynamically stable during the course but still with signficant hypoxia and could not be weaned from the vapotherm without significan hypoxia Plan: transfer to [facility] under the services of dr rosa
[2020-06-26] MEDS: LIPITOR PO SCH (22:14)
[2020-06-27] MEDS: VENTOLIN HFA (PER PUFF-WITH SPACER) IH SCH ×6 (01:40→21:12)
[2020-06-27] MEDS: ATROVENT HFA INHALER (PER PUFF-WITH SPACER) IH SCH ×4 (04:30→21:12)
[2020-06-27] MEDS: MAXIPIME 2 GM/50 ML D5W 2 GM/50 ML BAG IV SCH ×3 (04:58→20:32)
--- NOTE | 2020-06-27 06:32 | PCM.PROG ---
Date Seen by Provider: 06/27/20 Time Seen by Provider: 06:29 Subjective: mr cazares doing about the same---using nonrebreather and failed nasal cannula at 6L last evening prior to failed transfer Objective: Vitals: T=99.0 F, P=74, R=24, WA=193/76, SPO2=92 HEENT: [perlla] Neck: [supple] Lungs: [scattered rhonchi] CVS: [rrr] Abdomen: [soft nt] Extremities: [no deformity] Neurological: [intact] Skin: [no rashes] Lab/Tests/Diagnostic Imaging: [see report] (1) Acute respiratory failure: Status: Acute Code(s): J96.00 - Acute respiratory failure, unspecified whether with hypoxia or hypercapnia SNOMED Code(s): 26744086 (2) Pneumonia due to 2019-nCoV: Status: Acute Code(s): U07.1 - COVID-19; J12.89 - Other viral pneumonia SNOMED Code(s): 016209620861980161 Plan: continung antbx till 10 days---monitoring renal function---resp attempting oxygen wean--carrillo carrillo declined transfer as he felt the patient was improving(radha rosa)
[2020-06-27] MEDS: VANCOMYCIN 1.5 GRAM/300 ML PREMIX 1.5 GM/300 ML BAG IV SCH ×2 (08:45→21:53)
[2020-06-27] MEDS: LOVENOX SUBCUT SCH (08:45)
[2020-06-27] MEDS: PREDNISONE PO SCH (08:46)
[2020-06-27] MEDS: RUXOLITINIB 10 MG PO SCH ×2 (08:47→20:38)
[2020-06-27] MEDS: TROSPIUM 20 MG PO SCH ×2 (08:47→20:38)
[2020-06-27] MEDS: SYMBICORT 160-4.5 MCG INHALER IH SCH ×2 (08:47→20:37)
[2020-06-27 09:08] LABS: HEMATOCRIT 39.5 % (42.0-52.0); HEMOGLOBIN 13.7 g/dl (14.0-18.0); MEAN CORPUSCULAR HEMOGLOBIN 30.6 pg (27.0-31.0); MEAN CORPUSCULAR HGB CONC 34.7 (31.8-35.4); MEAN CORPUSCULAR VOLUME 88.4 fl (80.0-94.0); PLATELET COUNT 159 10^3/uL (140-440); RDW COEFFICIENT OF VARIATION 14.6 % (11.6-14.8); RED BLOOD COUNT 4.47 10^6/ul (4.70-6.10); WHITE BLOOD COUNT 6.99 K/ul (4.2-10.2)
[2020-06-27 09:10] LABS: ABG BASE EXCESS -1.7 (-2.0-2.0); ABG HCO3 21.2 (22.0-26.0); ABG PH 7.52 (7.35-7.45); ABG TCO2 22 (22.0-28.0)
[2020-06-27 09:22] LABS: ALANINE AMINOTRANSFERASE 27.3 U/L (0-50); ALBUMIN 3.59 g/dL (3.5-5.0); ALKALINE PHOSPHATASE 53.8 U/L (56-119); ASPARTATE AMINO TRANSFERASE 49.3 U/L (17-59); BILIRUBIN,TOTAL 1.56 mg/dL (0.2-1.3); BLOOD UREA NITROGEN 19.9 mg/dL (9-20); CALCIUM 9.24 mg/dL (8.4-10.2); CARBON DIOXIDE 22.3 mmol/L (22-30.0); CHLORIDE 103.8 mmol/L (98-107); CREATININE 0.82 mg/dL (0.60-1.10); GLUCOSE 95.8 mg/dL (74-106); POTASSIUM 3.69 mmol/L (3.5-5.1); TOTAL PROTEIN 6.76 g/dL (6.3-8.2)
[2020-06-27 09:51] LABS: ANISOCYTOSIS 2+ (NOT PRESENT)
[2020-06-27] MEDS: PEPCID IVP SCH ×2 (11:04→20:34)
--- NOTE | 2020-06-27 11:30 | DI ---
Exam: Single view of the chest. Comparison: 06/25/2020. Reason for exam: Follow-up pneumonia. FINDINGS: Patchy airspace opacities are seen throughout the lung parenchyma with persistent cardiome lyndsey. Aeration appears slightly improved in the left lower lobe. No pneumothorax is seen. Impression: Persistent air space opacities are seen throughout the lung parenchyma consistent with multi focal pn eumonia and edema. There is slightly improved aeration in the left lung base.
[2020-06-27] MEDS: LIPITOR PO SCH (20:32)
[2020-06-28] MEDS: VENTOLIN HFA (PER PUFF-WITH SPACER) IH SCH ×6 (01:08→21:15)
[2020-06-28] MEDS: ATROVENT HFA INHALER (PER PUFF-WITH SPACER) IH SCH ×4 (04:40→21:15)
[2020-06-28] MEDS: MAXIPIME 2 GM/50 ML D5W 2 GM/50 ML BAG IV SCH ×2 (05:07→13:52)
[2020-06-28] MEDS: PREDNISONE PO SCH (08:41)
[2020-06-28] MEDS: SYMBICORT 160-4.5 MCG INHALER IH SCH ×2 (08:42→20:53)
[2020-06-28] MEDS: RUXOLITINIB 10 MG PO SCH ×2 (08:42→20:52)
[2020-06-28] MEDS: LOVENOX SUBCUT SCH (08:42)
[2020-06-28] MEDS: TROSPIUM 20 MG PO SCH ×2 (08:42→20:52)
[2020-06-28] MEDS: PEPCID IVP SCH (09:26)
[2020-06-28] MEDS ORDERED: VANCOMYCIN 1 GM in SODIUM CHLORIDE 250 ML IV SCH ×4 (10:30)
[2020-06-28] MEDS: VANCOMYCIN 1.5 GRAM/300 ML PREMIX 1.5 GM/300 ML BAG IV SCH (14:37)
--- NOTE | 2020-06-28 14:53 | PCM.PROG ---
Date Seen by Provider: 06/28/20 Time Seen by Provider: 14:51 Subjective: feeling much better---oxygen sat 90% on 4 l nc--hopeful for dicharge in am Objective: Vitals: T=97.9 F, P=78, R=25, LB=367/69, SPO2=94 HEENT: [perrla] Neck: [supple] Lungs: [clear] CVS: [rrr] Abdomen: [soft nt] Extremities: [no deformity] Neurological: [intact] Skin: [no rashes] Lab/Tests/Diagnostic Imaging: [cxr from yesterfday improved] (1) Acute respiratory failure: Status: Acute Code(s): J96.00 - Acute respiratory failure, unspecified whether with hypoxia or hypercapnia SNOMED Code(s): 78976291 (2) Pneumonia due to 2019-nCoV: Status: Acute Code(s): U07.1 - COVID-19; J12.89 - Other viral pneumonia SNOMED Code(s): 411138924182730898 Plan: if labs tomorow are staBle --home with home oxygen---d/w patient---stop antbx
[2020-06-28] MEDS: ROBITUSSIN AC SYRUP PO PRN (15:03)
[2020-06-28] MEDS: PEPCID PO SCH (17:41)
[2020-06-28] MEDS: LIPITOR PO SCH (20:50)
[2020-06-29] MEDS: VENTOLIN HFA (PER PUFF-WITH SPACER) IH SCH ×4 (01:10→14:27)
[2020-06-29] MEDS: ATROVENT HFA INHALER (PER PUFF-WITH SPACER) IH SCH ×3 (04:43→14:27)
[2020-06-29] MEDS: PEPCID PO SCH (05:53)
[2020-06-29 05:55] VITALS: BP 125/77; TEMP 96.4
[2020-06-29 06:28] LABS: ALBUMIN 3.66 g/dL (3.5-5.0); ALKALINE PHOSPHATASE 57.1 U/L (56-119); ASPARTATE AMINO TRANSFERASE 46.5 U/L (17-59); BILIRUBIN,TOTAL 1.45 mg/dL (0.2-1.3); BLOOD UREA NITROGEN 19.9 mg/dL (9-20); CALCIUM 9.55 mg/dL (8.4-10.2); CARBON DIOXIDE 24.9 mmol/L (22-30.0); CHLORIDE 103.3 mmol/L (98-107); CREATININE 0.72 mg/dL (0.60-1.10); POTASSIUM 4.15 mmol/L (3.5-5.1); SODIUM 136.8 mmol/L (134.5-145); TOTAL PROTEIN 6.95 g/dL (6.3-8.2)
[2020-06-29 07:39] LABS: HEMATOCRIT 40.6 % (42.0-52.0); HEMOGLOBIN 13.9 g/dl (14.0-18.0); MEAN CORPUSCULAR HEMOGLOBIN 30.3 pg (27.0-31.0); MEAN CORPUSCULAR HGB CONC 34.2 (31.8-35.4); MEAN CORPUSCULAR VOLUME 88.5 fl (80.0-94.0); PLATELET COUNT 119 10^3/uL (140-440); RDW COEFFICIENT OF VARIATION 14.6 % (11.6-14.8); RED BLOOD COUNT 4.59 10^6/ul (4.70-6.10)
[2020-06-29 08:16] LABS: ANISOCYTOSIS NOT PRESENT (NOT PRESENT); WHITE BLOOD COUNT 8.17 K/ul (4.2-10.2)
[2020-06-29] MEDS ORDERED: PREDNISONE PO SCH ×2 (08:30)
[2020-06-29] MEDS: LOVENOX SUBCUT SCH (08:34)
[2020-06-29] MEDS: TROSPIUM 20 MG PO SCH (08:35)
[2020-06-29] MEDS: SYMBICORT 160-4.5 MCG INHALER IH SCH (08:35)
[2020-06-29] MEDS: RUXOLITINIB 10 MG PO SCH (08:35)
--- NOTE | 2020-07-03 11:28 | ECHO2D ---
Date of Exam: 06/29/2020 Ordering Physician: DR. AMY MAC Room #: 120 Reason for Echo: DYSPNEA, QUESTIONABLE CARDIOMYOPATHY, COVID 19 POSITIVE M-Mode Normal Adult Results LV Dimensions Normal Adult Results AoV Opening excursions >1.6 >1.6 LVEDD-base- 3.5-5.8 5.5 Ao root dimensions 2.0-3.7 3.2 LVESD-base- 3.1-4.6 L. Atrium dimensions 1.9-3.8 4.0 Post. Wall thickness 0.8-1.1 1.1 IV septum (thickness) 0.7-1.2 1.1 Post. Wall excursion 0.72-1.3 NORMAL Septal motion NORMAL Systolic motion R. Ventricular cavity 1.5-2.0 NORMAL LVEF 60% 50% Paradoxical septal wall motion NORMAL 2-D : 2-D M Mode Echocardiogram was performed using apical four chamber and left parasternal long and short axis views. Mitral, tricuspid and aortic valves appear to be normal. Contractility of the left ventricle seems to be normal, so is the cavity size. BORDERLINE LEFT ATRIAL CAVITY. Aortic root appears to be normal. There is no pericardial effusion. There is no thrombus noted in the left ventricle or left atrial cavity. No mitral valve prolapse noted. M-MODE: MV: NORMAL AV: NORMAL TV: NORMAL PV: CHAMBER SIZE: BORDERLINE LEFT ATRIAL CAVITY ENLARGEMENT WALL MOTION: NORMAL PERICARDIUM: NORMAL INTERPRETATION: 1. BORDERLINE LEFT ATRIAL CAVITY ENLARGEMENT 2. VALVES--NORMAL 3. LEFT VENTRICLE CAVITY SIZE--NORMAL 4. LEFT VENTRICLE CONTRACTILITY--NORMAL MTDD
== END 2020-06-29 14:48 | disposition home or self-care (01) | DRG 189 ==
LOC: ED 17:10 → MEDSURG B 22:03
PROVIDERS: ADMIT Family Medicine; ATTEND Family Medicine
DX: U07.1 COVID-19; R53.1 Weakness; J96.01 Acute respiratory failure with hypoxia; R07.1 Chest pain on breathing; R05 Cough; J12.89 Other viral pneumonia

== ENCOUNTER 2022-06-03 18:14 | Inpatient (IN) ==
[2022-06-03] MEDS ORDERED: ATROPINE SULFATE PFS IVP PRN (18:24)
[2022-06-03] MEDS ORDERED: NITROSTAT SL PRN (18:24)
[2022-06-03] MEDS ORDERED: MOTRIN PO PRN (18:42)
[2022-06-03] MEDS ORDERED: CATAPRES PO PRN (18:45)
--- NOTE | 2022-06-03 18:50 | DI ---
EXAM: CHEST RADIOGRAPH TECHNIQUE: Single frontal chest radiograph. HISTORY: Shortness of breath. COMPARISON: 08/14/2020. FINDINGS: The lungs are clear. The heart is enlarged. There is no pleural effusion. There is no pneumothorax. IMPRESSION: 1. Cardiomegaly. 2. Clear lungs. 3. Otherwise normal chest radiograph.
[2022-06-03 19:21] VITALS: BMI 35.4
[2022-06-03] MEDS: CARDIZEM 125 MG in SODIUM CHLORIDE 100ML 100 ML IV SCH (19:53)
[2022-06-03] MEDS: OXYCODONE PO PRN (20:45)
[2022-06-03] MEDS: ELIQUIS PO SCH (20:45)
[2022-06-03 23:11] LABS: BILIRUBIN,URINE Negative (NEGATIVE); CLARITY,URINE Clear (CLEAR); COLOR,URINE Yellow (YELLOW); GLUCOSE, URINE (UA) Negative (NEGATIVE); KETONES,URINE Negative (NEGATIVE); LEUKOCYTE ESTERASE ,URINE Negative (NEGATIVE); NITRITE,URINE Negative (NEGATIVE); PH,URINE 5.5 (5-9); PROTEIN,URINE Negative (NEGATIVE); URINE, BLOOD Negative (NEGATIVE); UROBILINOGEN,URINE 0.2 (0.2)
[2022-06-04] MEDS: CARDIZEM 125 MG in SODIUM CHLORIDE 100ML 100 ML IV SCH ×3 (03:06→19:25)
[2022-06-04 05:20] LABS: BASOPHILS # (AUTO) 0.1 K/uL (0-0.2); BASOPHILS % (AUTO) 0.9 % (0.0-3.0); EOSINOPHILS # (AUTO) 0.1 K/ul (0.0-0.7); EOSINOPHILS % (AUTO) 1.9 % (0.0-7.0); HEMOGLOBIN 11.1 g/dl (14.0-18.0); IMMATURE GRANULOCYTE # (AUTO) 0.1 (0.0-1.0); IMMATURE GRANULOCYTE % (AUTO) 2.1 % (0.0-5.0); LYMPHOCYTES # (AUTO) 0.7 K/uL (0.60-3.4); MEAN CORPUSCULAR HEMOGLOBIN 31.4 pg (27.0-31.0); MEAN CORPUSCULAR HGB CONC 32.6 (31.8-35.4); MEAN CORPUSCULAR VOLUME 96.3 fl (80.0-94.0); MONOCYTES # (AUTO) 0.4 K/uL (0.4-2.0); MONOCYTES % (AUTO) 6.6 (0-10); NEUTROPHILS # (AUTO) 4.4 K/ul (2.0-6.9); NEUTROPHILS % (AUTO) 76.5 % (42.2-75.2); PLATELET COUNT 205 10^3/uL (140-440); RDW COEFFICIENT OF VARIATION 15.6 % (11.6-14.8); RED BLOOD COUNT 3.53 10^6/ul (4.70-6.10); WHITE BLOOD COUNT 5.77 K/ul (4.2-10.2)
[2022-06-04 05:34] LABS: ALANINE AMINOTRANSFERASE 21.4 U/L (0-50); ALBUMIN 3.37 g/dL (3.5-5.0); ALKALINE PHOSPHATASE 51.3 U/L (56-119); BILIRUBIN,TOTAL 1.09 mg/dL (0.2-1.3); BLOOD UREA NITROGEN 22.6 mg/dL (9-20); CALCIUM 8.1 mg/dL (8.4-10.2); CARBON DIOXIDE 26.7 mmol/L (22-30.0); CREATININE 0.76 mg/dL (0.60-1.10); GLUCOSE 130.5 mg/dL (74-106); POTASSIUM 3.6 mmol/L (3.5-5.1); SODIUM 137.1 mmol/L (134.5-145); TOTAL PROTEIN 6.32 g/dL (6.3-8.2)
[2022-06-04] MEDS: RUXOLITINIB 10 MG PO SCH ×3 (07:39→21:14)
[2022-06-04] MEDS: TROSPIUM 20 MG PO SCH ×3 (07:40→21:14)
[2022-06-04] MEDS: MULTIVITAMIN TABLET PO SCH (08:40)
[2022-06-04] MEDS: ELIQUIS PO SCH ×2 (08:41→21:15)
[2022-06-04] MEDS ORDERED: LANOXIN IVP ONE (11:26)
[2022-06-04] MEDS ORDERED: LANOXIN IVP STA ×2 (11:45→19:38)
[2022-06-04] MEDS: CARDIZEM PO SCH ×2 (11:47→21:15)
--- NOTE | 2022-06-04 11:52 | RS.OTINEVL ---
Subjective - Patient information Date of Evaluation: 06/04/22 Date of Arrival on Unit: 06/03/22 Admitted From:: Facility Transfer (transfer from [facility] for swing) Diagnosis: New onset of AFib, with RVR PRECAUTIONS: HR elevates with activity Usual Living Arrangement: With Spouse Living Arrangement Comments: Pt lives with spouse, multiple pets, and adult grandchildren in home. Home Environment: House, Ramp Medical History: Hypertension, Arthritis, Cancer (prostate) Medical History Comments:: ataxia, myelofibrosis, neuropathy, sleep apnea, Surgical History: Knee Replacement (R 2010, L TKR 05/29/22) Surgical History Comments:: L TKA Medications: see chart Subjective Information/ Patient Comments:: "I have been in here a while and I'm ready to go home." "They found something else so now I am here." - Level of function Prior to this admission, the patient could do the following:: Independent Ambulation (with cane or crutches) Current Equipment Used at Home: cane, walker, BSC, CPAP, Oxygen Pain Assessment - Pain Pain Score: 5 Side: left Pain Location Body Site: Knee Pain Aggravating Factors: ADL's, Changing Position, Standing, Walking Pain Alleviating Factors: Ice, Medication, Position Change Interventions - Objective Patient Orientation: Person, Place, Time, Situation Current Interventions: IV's, Telemetry Observation: Pt is alert and oriented. Pt sitting in chair with feet elevated. Pt is min A to stand from chair. Pt is able to kick out Left leg in standing with his RW. Interventions - ROM Right Upper Extremity AROM: WFL's Left Upper Extremity AROM: WFL's - Strength Right Upper Extremity Strength: Mild Weakness Left Upper Extremity Strength: Mild Weakness - Sensation Right Upper Extremity Sensation: Intact/Normal Left Upper Extremity Sensation: Intact/Normal Balance - Sitting Balance Static Sitting Balance: Fair Dynamic Sitting Balance: Fair - Standing Balance Static Standing Balance: Poor Dynamic Standing Balance: Poor ADL Skills - Self Feeding Self Feeding: Independent - Grooming Grooming: Min Assist, 1 person assist Grooming Set-up: Sitting - Bathing Bathing UE: Not Tested Bathing LE: Not Tested - Dressing Dressing UE: Independent Dressing LE: Max Assist, 1 person assist - Toilet Management Toilet Hygiene: CGA Toilet Clothing Management: Min Assist Functional Mobility - Transfers Sit to Stand: Min Assist Stand to Sit: Min Assist Stand Pivot Transfers: Min Assist - Ambulation Weight Bearing Status: FWB Assistance needed with Ambulation: 1 person assist - Safety Awareness Safety Awareness: Good CHATO INDEX SCORE: . Additional Treatment Performed - Time with patient Length of Evaluation: 19 Total treatment time: 20 Activities Do you enjoy playing games?: Yes Would you be interested in leaving your room for activities?: Yes Would you enjoy group activities?: Yes Do you have difficulty with your vision?: Yes Patient Interests:: Watching Television, Puzzles/Games, Visiting/Socializing Patient Education Patient Education: Education of diagnosis, Home Exercise Program, Education of Plan of Care Teaching Recipient: Patient Teaching Methods: Discussion Assessment Problem List:: Decreased level of function, Requires training/education, Decreased safety/Risk of falls, Pain limits previous level of function Rehab Potential: Good Further Therapy Indicated?: Yes Evaluation Complexity: HISTORY: Medium, EXAM OF BODY SYSTEMS: Medium, CLINICAL DECISION MAKING: Medium Patient's Goal(s): To be able to go home and move around better. Short Term Goals - Goals GOAL 1: Pt to increase toilet transfers to CGA with RW. Goal to be met by: 06/11/22 GOAL 2: Pt to be able to complete sink level ADLS with CGA. Goal to be met by: 06/11/22 GOAL 3: Pt to be independent with adaptive equipment for LE dressing. Goal to be met by: 06/11/22 GOAL 4: Pt to increase dyn. std. bal. to Fair+. Goal to be met by: 06/11/22 [facility] Goals GOAL 1: Pt to increase ADLS to SBA. Goal to be met by: 06/13/22 GOAL 2: Pt to increase activity tolerance x 12 minutes. Goal to be met by: 06/13/22 GOAL 3: Pt to increase dyn. std. bal. to G-. Goal to be met by: 06/13/22 Plan Plan of Care: Therapeutic EX, Therapeutic Activity, Self-Care/Home Management Frequency of Treatment: 1-2 X day, as tolerated Duration of Treatment: 2 Weeks Anticipated Discharge Destination: Home Treatment Diagnosis (ICD 10 Codes): Weakness R51.3, Z74.1 Need for assistance with personal care,Z74.0 Reduced mobility. Has the Physician been added for Co-signature?: Yes
--- NOTE | 2022-06-04 12:34 | ECHO2D ---
Date of Exam: 06/04/2022 Ordering Physician: DR. AMY MAC Room #: 110 Reason for Echo: NEW ONSET ATRIAL FIBRILLATION M-Mode Normal Adult Results LV Dimensions Normal Adult Results AoV Opening excursions >1.6 >1.6 LVEDD-base- 3.5-5.8 4.6 Ao root dimensions 2.0-3.7 3.9 LVESD-base- 3.1-4.6 L. Atrium dimensions 1.9-3.8 4.2 Post. Wall thickness 0.8-1.1 1.2 IV septum (thickness) 0.7-1.2 1.3 Post. Wall excursion 0.72-1.3 NORMAL Septal motion NORMAL Systolic motion R. Ventricular cavity 1.5-2.0 NORMAL LVEF 60% 70% Paradoxical septal wall motion NORMAL 2-D : 2-D M Mode Echocardiogram was performed using apical four chamber and left parasternal long and short axis views. Mitral, tricuspid and aortic valves appear to be normal. Contractility of the left ventricle seems to be normal, so is the cavity size. ENLARGED LEFT ATRIAL CAVITY SIZE-MILD Aortic root appears to be normal. There is no pericardial effusion. There is no thrombus noted in the left ventricle or left atrial cavity. M-MODE: MV: NORMAL AV: NORMAL TV: NORMAL PV: CHAMBER SIZE: ENLARGED LEFT ATRIAL CAVITY WALL MOTION: NORMAL PERICARDIUM: NORMAL INTERPRETATION: 1. LEFT VENTRICLE HYPERTROPHY WITH ENLARGED LEFT ATRIAL CAVITY (MILD) 2. NORMAL VALVES 3. NORMAL LEFT VENTRICLE CONTRACTILITY AND LEFT VENTRICLE SIZE MTDD
[2022-06-04] MEDS ORDERED: THORAZINE IM PRN (17:12)
--- NOTE | 2022-06-04 17:25 | PCM ---
Chief Complaint Chief Complaint: im here to get rehab for my knee History of Present Illness History of Present Illness: This is an 81 yr old male with hx of polycythemia vera who recently underwent total knee replacment at [facility]. He was referred here for rehab but upon admission was found to have afib with rvr and changed to acute care for treatment. Review of Systems Constitutional: Reports Weakness Eyes: Reports No symptoms Ears: Reports No symptoms Nose: Reports No symptoms Throat: Reports No symptoms Mouth: Reports No symptoms Respiratory: Reports No symptoms Cardiovascular: Reports No symptoms Gastrointestinal: Reports No symptoms Genitourinary: Reports No symptoms Neurological: Reports No symptoms Musculoskeletal: Reports Pain and Swelling in joints Skin: Reports No symptoms Immunology: Reports No symptoms Hematology: Reports No symptoms Endocrine: Reports No symptoms Psychiatric: Reports No symptoms Habits: Denies Tobacco use, Substance use, Alcohol use or Other Allergies Allergies Allergy/AdvReac Type Severity Reaction Status Date / Time No Known Drug Allergies Allergy Mild Anxiety Verified 06/04/22 17:21 [facility] Medical History Ataxia Cancer Cataract Hyperglycemia Hyperlipidemia Hypertension Malignant neoplasm of prostate Myelofibrosis Other hereditary and idiopathic neuropathies Pulmonary nodule Sleep apnea Vertigo Surgical History Hx of LASIK Hx of tonsillectomy Hx of total knee replacement Family History SISTER Cancer SISTER Kidney disease Social History Smoking and tobacco status: Former smoker Alcohol intake: current Alcohol intake frequency: holidays/special occasions only Alcohol type: beer Counseling given: No Medications Medications: Medications Generic Name Dose Route Start Last Admin Trade Name Freq PRN Reason Stop Dose Admin Apixaban 5 mg 06/03/22 21:00 06/04/22 08:41 Apixaban 5 Mg Tab PO 5 mg BID LILLIAN Administration Atropine Sulfate 0.5 mg 06/03/22 18:24 Atropine Sulfate Inj 1 Mg/10 Ml Disp.Syrin IVP ONCE PRN Symptomatic Bradycardia Chlorpromazine HCl 25 mg 06/04/22 19:00 Chlorpromazine Hcl 50 Mg/2 Ml Amp IM 06/04/22 19:01 ONCE ONE Chlorpromazine HCl 25 mg 06/04/22 17:12 Chlorpromazine Hcl 50 Mg/2 Ml Amp IM ONCE PRN Hiccups Diltiazem HCl 60 mg 06/04/22 11:24 06/04/22 11:47 Diltiazem Hcl 60 Mg Tablet PO 60 mg BID LILLIAN Administration Diltiazem HCl 125 mg/ Sodium 125 mls @ 10 mls/hr 06/03/22 19:00 06/04/22 16:09 Chloride IV 6 mg/hr TITRATION LILLIAN 6 mls/hr Titration Protocol 10 MG/HR Multivitamins 1 tab 06/04/22 09:00 06/04/22 08:40 Multivitamin 1 Tab PO 1 tab DAILY LILLIAN Administration Nitroglycerin 0.4 mg 06/03/22 18:24 Nitroglycerin 0.4 Mg Tab.Subl SL Q5MIN X 3 DOSES PRN Chest Pain Non-Formulary Medication 10 mg 06/03/22 21:00 06/04/22 10:07 Ruxolitinib [Jakafi] PO Not Given BID [facility] Non-Formulary Medication 20 mg 06/03/22 21:00 06/04/22 10:07 Trospium PO Not Given BID [facility] Oxycodone HCl 5 mg 06/03/22 18:46 06/03/22 20:45 Oxycodone Hcl 5 Mg Tablet PO 5 mg Q4H PRN Administration Pain Sodium Chloride 1 syr 06/03/22 21:00 06/04/22 13:14 0.9% Sodium Chloride 10 Ml Disp.Syrin IVF Not Given Q8HR [facility] Body Composition Height: 5 ft 9 in Weight: 240 lb Body Mass Index (BMI): 35.4 Vital Signs Temperature: 97.2 F Pulse Rate: 84 Respiratory Rate: 18 Blood Pressure: 128/77 O2 Sat by Pulse Oximetry: 99 Physical Examination Appearance: Reports Well-appearing Ill-appearing: None Pain Distress: Mild Eyes: Reports HARRY and EOMI ENT: Reports Ears normal, Nose normal and Oropharynx normal Neck: Supple Respiratory: Reports Airway patent, Breath sounds clear and Breath sounds equal Cardiovascular: Reports RRR, Pulses normal and No rub GI/: Reports Soft, Nontender and No masses Musculoskeletal: Reports Normal strength, No edema and No calf tenderness Skin: Reports Warm, Dry and Normal color Neurological: Reports Sensation intact, Motor intact, Reflexes intact, Cranial nerves intact, Alert and Oriented Psychiatric: Reports Affect appropriate and Mood appropriate Lab/Tests/Diagnostic Imaging Lab/Tests/Diagnostic Imaging: Lab Review 06/03/22 06/04/22 06/04/22 23:05 05:10 05:10 WBC 5.77 RBC 3.53 L Hgb 11.1 L Hct 34.0 L MCV 96.3 H MCH 31.4 H MCHC 32.6 RDW Coeff of Deborah 15.6 H Plt Count 205 Immature Gran % (Auto) 2.1 Neut % (Auto) 76.5 H Lymph % (Auto) 12.0 [place] % (Auto) 6.6 Eos % (Auto) 1.9 Baso % (Auto) 0.9 Neut # (Auto) 4.4 Lymph # (Auto) 0.7 [place] # (Auto) 0.4 Eos # (Auto) 0.1 Baso # (Auto) 0.1 Immature Gran # (Auto) 0.1 Sodium 137.1 Potassium 3.60 Chloride 102.0 Carbon Dioxide 26.7 Anion Gap 12.00 BUN 22.6 H Creatinine 0.76 Estimated GFR (MDRD) 98.00 BUN/Creatinine Ratio 29.73 Glucose 130.5 H Calcium 8.10 L Total Bilirubin 1.09 AST 32.0 ALT 21.4 Alkaline Phosphatase 51.3 L Total Protein 6.32 Albumin 3.37 L Globulin 2.95 Albumin/Globulin Ratio 1.14 Urine Color Yellow Urine Clarity Clear Urine pH 5.5 Ur Specific [place] 1.025 Urine Protein Negative Urine Glucose (UA) Negative Urine Ketones Negative Urine Blood Negative Urine Nitrite Negative Urine Bilirubin Negative Urine Urobilinogen 0.2 Ur Leukocyte Esterase Negative Orders Category Date Time Status ADMIT PATIENT INPATIENT .TO [facility] (MONITORED BED) ADMISSION 06/03/22 18:23 Active ECHOCARDIOGRAM 2D-M MODE Routine CARDIO 06/04/22 08:00 Completed EKG-(IP & OP ONLY) DAILY CARDIO 06/04/22 06:00 Completed EKG-(IP & OP ONLY) DAILY CARDIO 06/05/22 06:00 Ordered ACTIVITY .Up With Assistance CARE 06/03/22 18:24 Active INTAKE & OUTPUT Q8HR CARE 06/03/22 18:49 Completed IP: INSERT SALINE LOCK ONCE CARE 06/03/22 18:24 Active NOTIFY PHYSICIAN OF CONSULT ONCE CARE 06/03/22 18:28 Active Notify RT of Treatment ONCE CARE 06/03/22 18:26 Active TELEMETRY MONITORING TELE CARE 06/03/22 18:24 Active VITAL SIGNS Q8HR CARE 06/03/22 18:24 Completed CONSULT PHYSICIAN [PHYSICIAN CONSULTATION] [CONS] CONSULTS 06/03/22 18:28 Ordered Routine REGULAR DIET DIETARY 06/04/22 Breakfast Ordered CONSULT LABORATORY TESTER ONCE LABORATORY TESTER 06/03/22 19:21 Active CBC W/ AUTO DIFF DAILY@0600 LAB 06/04/22 05:10 Completed CBC W/ AUTO DIFF DAILY@0600 LAB 06/05/22 06:00 Ordered CMP [COMPREHENSIVE METABOLIC PANEL] DAILY@0600 LAB 06/04/22 05:10 Completed CMP [COMPREHENSIVE METABOLIC PANEL] DAILY@0600 LAB 06/05/22 06:00 Ordered URINALYSIS C & S IF INDICATED Stat LAB 06/03/22 23:05 Completed 0.9 % Sodium Chloride [Saline Flush] MEDS 06/03/22 21:00 Active 1 syr IVF Q8HR Apixaban [Eliquis] MEDS 06/03/22 21:00 Active 5 mg PO BID Atropine Sulfate Inj [Atropine Sulfate Pfs] MEDS 06/03/22 18:24 Active 0.5 mg IVP ONCE PRN Chlorpromazine HCl [Thorazine] MEDS 06/04/22 19:00 Once 25 mg IM ONCE ONE Chlorpromazine HCl [Thorazine] MEDS 06/04/22 17:12 Ordered 25 mg IM ONCE PRN Digoxin Inj [Lanoxin] MEDS 06/04/22 11:45 Discontinued 125 mcg IVP ONCE STA Diltiazem HCl [Cardizem] MEDS 06/04/22 11:24 Active 60 mg PO BID Diltiazem HCl [Cardizem] 125 mg MEDS 06/03/22 19:00 Active 0.9 % Sodium Chloride [Sodium Chloride 100Ml] 100 ml IV TITRATION Multivitamin [Multivitamin Tablet] MEDS 06/04/22 09:00 Active 1 tab PO DAILY Nitroglycerin [Nitrostat] MEDS 06/03/22 18:24 Active 0.4 mg SL Q5MIN X 3 DOSES PRN Oxycodone HCl [Oxycodone] MEDS 06/03/22 18:46 Active 5 mg PO Q4H PRN ruxolitinib [Jakafi] MEDS 06/03/22 21:00 Active 10 mg PO BID trospium MEDS 06/03/22 21:00 Active 20 mg PO BID RESUSCITATION STATUS Routine OTHERS 06/03/22 19:21 Ordered CHEST, 1V AP ONLY Stat RADS 06/03/22 18:24 Completed ACTIVITIES CONSULT Routine THERAPIES 06/03/22 15:39 Completed OT CONSULTATION Routine THERAPIES 06/03/22 15:38 Completed PT CONSULT Routine THERAPIES 06/03/22 15:39 Completed Medications Generic Name Dose Route Start Last Admin Trade Name Yanni PRN Reason Stop Dose Admin Apixaban 5 mg 06/03/22 21:00 06/04/22 08:41 Apixaban 5 Mg Tab PO 5 mg BID LILLIAN Administration Atropine Sulfate 0.5 mg 06/03/22 18:24 Atropine Sulfate Inj 1 Mg/10 Ml Disp.Syrin IVP ONCE PRN Symptomatic Bradycardia Chlorpromazine HCl 25 mg 06/04/22 19:00 Chlorpromazine Hcl 50 Mg/2 Ml Amp IM 06/04/22 19:01 ONCE ONE Chlorpromazine HCl 25 mg 06/04/22 17:12 Chlorpromazine Hcl 50 Mg/2 Ml Amp IM ONCE PRN Hiccups Diltiazem HCl 60 mg 06/04/22 11:24 06/04/22 11:47 Diltiazem Hcl 60 Mg Tablet PO 60 mg BID LILLIAN Administration Diltiazem HCl 125 mg/ Sodium 125 mls @ 10 mls/hr 06/03/22 19:00 06/04/22 16:09 Chloride IV 6 mg/hr TITRATION LILLIAN 6 mls/hr Titration Protocol 10 MG/HR Multivitamins 1 tab 06/04/22 09:00 06/04/22 08:40 Multivitamin 1 Tab PO 1 tab DAILY LILLIAN Administration Nitroglycerin 0.4 mg 06/03/22 18:24 Nitroglycerin 0.4 Mg Tab.Subl SL Q5MIN X 3 DOSES PRN Chest Pain Non-Formulary Medication 10 mg 06/03/22 21:00 06/04/22 10:07 Ruxolitinib [Jakafi] PO Not Given BID LILLIAN Non-Formulary Medication 20 mg 06/03/22 21:00 06/04/22 10:07 Trospium PO Not Given BID LILLIAN Oxycodone HCl 5 mg 06/03/22 18:46 06/03/22 20:45 Oxycodone Hcl 5 Mg Tablet PO 5 mg Q4H PRN Administration Pain Sodium Chloride 1 syr 06/03/22 21:00 06/04/22 13:14 0.9% Sodium Chloride 10 Ml Disp.Syrin IVF Not Given Q8HR LILLIAN Discontinued Medications Generic Name Dose Route Start Last Admin Trade Name Freq PRN Reason Stop Dose Admin Digoxin 125 mcg 06/04/22 11:45 06/04/22 11:47 Digoxin Inj 500 Mcg/2 Ml Amp IVP 06/04/22 11:46 125 mcg ONCE STA Administration Assessment (1) Atrial fibrillation with RVR: Status: Acute Code(s): I48.91 - Unspecified atrial fibrillation SNOMED Code(s): 917576265638078 (2) Intractable hiccups: Status: Acute Code(s): R06.6 - Hiccough SNOMED Code(s): 31899502 (3) Total knee replacement status: Status: Acute Code(s): Z96.659 - Presence of unspecified artificial knee joint SNOMED Code(s): 0437091419709 Plan Plan: we have initiated francesca mesa and dr rosa has been consulted---asa and motrin stopped and eliquis started--echoi pending---will try thorazine for intractable hiccups---see orders
[2022-06-04] MEDS ORDERED: THORAZINE IM ONE (19:00)
[2022-06-04] MEDS ORDERED: CORDARONE PO ONE (19:38)
[2022-06-05] MEDS: OXYCODONE PO PRN ×3 (05:02→14:19)
[2022-06-05 05:07] LABS: BASOPHILS # (AUTO) 0.1 K/uL (0-0.2); BASOPHILS % (AUTO) 0.9 % (0.0-3.0); EOSINOPHILS # (AUTO) 0.1 K/ul (0.0-0.7); EOSINOPHILS % (AUTO) 2.2 % (0.0-7.0); HEMATOCRIT 33.7 % (42.0-52.0); HEMOGLOBIN 10.9 g/dl (14.0-18.0); IMMATURE GRANULOCYTE # (AUTO) 0.2 (0.0-1.0); IMMATURE GRANULOCYTE % (AUTO) 2.7 % (0.0-5.0); LYMPHOCYTES # (AUTO) 0.7 K/uL (0.60-3.4); LYMPHOCYTES % (AUTO) 13.6 (10.0-50.0); MEAN CORPUSCULAR HEMOGLOBIN 31.3 pg (27.0-31.0); MEAN CORPUSCULAR HGB CONC 32.3 (31.8-35.4); MEAN CORPUSCULAR VOLUME 96.8 fl (80.0-94.0); MONOCYTES # (AUTO) 0.4 K/uL (0.4-2.0); MONOCYTES % (AUTO) 7.1 (0-10); NEUTROPHILS % (AUTO) 73.5 % (42.2-75.2); PLATELET COUNT 188 10^3/uL (140-440); RDW COEFFICIENT OF VARIATION 15.6 % (11.6-14.8); RED BLOOD COUNT 3.48 10^6/ul (4.70-6.10); WHITE BLOOD COUNT 5.46 K/ul (4.2-10.2)
[2022-06-05 05:21] LABS: ALANINE AMINOTRANSFERASE 25.5 U/L (0-50); ALBUMIN 3.4 g/dL (3.5-5.0); ALKALINE PHOSPHATASE 57.8 U/L (56-119); ASPARTATE AMINO TRANSFERASE 40.3 U/L (17-59); BILIRUBIN,TOTAL 1.06 mg/dL (0.2-1.3); BLOOD UREA NITROGEN 20.7 mg/dL (9-20); CALCIUM 8.23 mg/dL (8.4-10.2); CARBON DIOXIDE 26.6 mmol/L (22-30.0); CHLORIDE 104.6 mmol/L (98-107); CREATININE 0.79 mg/dL (0.60-1.10); GLUCOSE 131.8 mg/dL (74-106); POTASSIUM 3.92 mmol/L (3.5-5.1); TOTAL PROTEIN 6.25 g/dL (6.3-8.2)
[2022-06-05] MEDS: TROSPIUM 20 MG PO SCH ×2 (08:25→20:01)
[2022-06-05] MEDS: RUXOLITINIB 10 MG PO SCH ×2 (08:25→20:01)
[2022-06-05] MEDS: CARDIZEM PO SCH ×2 (08:25→20:02)
[2022-06-05] MEDS: CORDARONE PO SCH ×2 (08:26→20:01)
[2022-06-05] MEDS: ELIQUIS PO SCH ×2 (08:26→20:02)
[2022-06-05] MEDS: MULTIVITAMIN TABLET PO SCH (08:30)
[2022-06-05] MEDS ORDERED: LANOXIN IVP ONE (13:21)
[2022-06-05] MEDS: COREG PO SCH ×2 (14:05→17:37)
[2022-06-05] MEDS: CARDIZEM 125 MG in SODIUM CHLORIDE 100ML 100 ML IV SCH (14:39)
--- NOTE | 2022-06-05 15:09 | RS.PTINEVL ---
Subjective - Patient information Date of Evaluation: 06/05/22 Date of Arrival on Unit: 06/03/22 Admitted From:: In-House Transfer (transferred from swing bed to acute) Diagnosis: afib w rvr, aftercare following knee joint replacement, difficulty walking, Usual Living Arrangement: With Spouse Home Environment: House, Ramp Medical History: Hypertension, Cancer (prostate) Medical History Comments:: neuropathy, myelofibrosis, ataxia, sleep apnea, Surgical History: Knee Replacement (R TKR 2009, L TKR 05/29/22) Medications: see chart Subjective Information/ Patient Comments:: pt states that he is feeling ok, that his knee is sore. pt reports no symptoms such as SOA or palpitations. SN watching telemetry during treatment. - Level of function Prior to this admission, the patient could do the following:: Independent Ambulation (with cane or crutches) Current Level of Function: Partially Dependent Current Equipment Used at Home: cane, walker, BSC, CPAP, Oxygen Pain Assessement - Location L knee Description: Tightness, Sharp, Aching Radiation Location: 4 with pain meds Pain Behavior: Grasping Site, Rubbing Site, Facial Grimacing Pain Aggravating Factors: Changing Position, Exercise/Activity, Standing, Walking Pain Alleviating Factors: Ice, Medication Interventions - Objective Patient Orientation: Person, Place, Time, Situation Current Interventions: IV's, Telemetry Observation: pitting edema LLE, min erythema, incision intact with small pinpoint amount of bloody exudate. (notified nursing) Range of Motion - ROM Right Upper Extremity AROM: WFL's Left Upper Extremity AROM: WFL's Right Lower Extremity AROM: WFL's Left Lower Extremity AROM: Slight limitation (L knee AAROM flex 80 ext -10) Muscle Strength - Muscle Strength Right Upper Extremity Strength: Mild Weakness (grossly 4+/5) Left Upper Extremity Strength: Mild Weakness (grossly 4+/5) Right Lower Extremity Strength: Mild Weakness (RLE 4+/5) Left Lower Extremity Strength: Mild Weakness (hip flex 4-/5, knee flex/ext 3-/5, ankle DF/ PF 4/5) Sensation - Sensation Right Upper Extremity Sensation: Intact/Normal Left Upper Extremity Sensation: Intact/Normal Right Lower Extremity Sensation: Intact/Normal Left Lower Extremity Sensation: Intact/Normal Palpation Palpation Findings: Tenderness (in area of incision) Balance - Sitting Balance and Reactions Static Sitting Balance: Good Dynamic Sitting Balance: Fair - Standing Balance and Reactions Static Standing Balance: Poor Dynamic Standing Balance: Poor Standing Equilibrium Reactions: Delayed Left, Delayed Right Standing Protective Reactions: Delayed Left, Delayed Right Functional Mobility - Bed Mobility Rolling R/L: Min Assist Scooting: Mod Assist, 2 person assist - Transfers Sit to Stand: CGA, Min Assist, 1 person assist Stand to Sit: CGA, Min Assist, 1 person assist - Safety Awareness Safety Awareness: Fair CHATO INDEX SCORE: n/a Ambulation - Ambulation Assistive Device Used: Rolling Walker Orthotic/Prosthetic Device: No Distance: 120ft Assistance needed with Ambulation: CGA, Min Assist Quality of Ambulation: x 1 Gait Deviations: Forward posture, Short stride Ambulation Comments: increased lat sway, flexed posture Factors Affecting Ambulation: Decreased Balance, Weakness, Decreased Coordination, Decreased ROM, Dizziness, Decreased Safety, Cognitive Status, Limited Endurance Treatment time - Units charged Gait trainin - Time with patient Length of Evaluation: 18 Total treatment time: 32 Patient Education - Education Patient Education: Home Exercise Program, Education of Plan of Care Teaching Recipient: Patient Teaching Methods: Discussion, Demonstration Assessment - Assessment Problem List:: Decreased level of function, Requires training/education, Decreased safety/Risk of falls, Weakness, Pain limits previous level of function Rehab Potential: Good Further Therapy Indicated?: Yes Candidate for Swing Bed for Therapy Services?: pt will be candidate to return to swing when dc from acute care. Evaluation Complexity: HISTORY: Medium, EXAM OF BODY SYSTEMS: Medium, CLINICAL PRESENTATION: Medium, CLINICAL DECISION MAKING: Medium Patient's Goal(s): pt wants to get back up walking so he can go deer hunting. Short Term Goals GOAL #1: pt independent with rolling and scooting in bed. Goal to be met by: 06/08/22 GOAL #2: Transfer sup to/from sit CGA Goal to be met by: 06/08/22 GOAL #3: Transfer sit to/from stand CGA Goal to be met by: 06/08/22 GOAL #4: pt amb with rwx 140ft with CGA with improved sequencing. 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 impaired balance R 26.81. difficulty walking R 26.2 Has the Physician been added for Co-signature?: Yes
--- NOTE | 2022-06-05 17:13 | PCM.PROG ---
Date Seen by Provider: 06/05/22 Time Seen by Provider: 17:11 Subjective: the patient requests to have flomax back---denies any leg swellling or dyspnea Objective: Vitals: T=97.4 F, P=100, R=16, ZZ=641/71, BTS9=589 HEENT: [] Neck: [supple] Lungs: [clear] CVS: [irr] Abdomen: [soft nt] Extremities: [] Neurological: [intact] Skin: [] Lab/Tests/Diagnostic Imaging: [] (1) Atrial fibrillation with RVR: Status: Acute Code(s): I48.91 - Unspecified atrial fibrillation SNOMED Code(s): 061238651553580 (2) Intractable hiccups: Status: Acute Code(s): R06.6 - Hiccough SNOMED Code(s): 14228499 (3) Total knee replacement status: Status: Acute Code(s): Z96.659 - Presence of unspecified artificial knee joint SNOMED Code(s): 0896430107879 Plan: appreciate dr hernandez input with this patient--will add miralax and restart flomax--check labs in am---p.t. has started---will convert to swing bed when ok with others
[2022-06-05] MEDS: FLOMAX PO SCH (17:38)
[2022-06-06 05:12] LABS: HEMATOCRIT 34.6 % (42.0-52.0); HEMOGLOBIN 11.1 g/dl (14.0-18.0); MEAN CORPUSCULAR HEMOGLOBIN 31.2 pg (27.0-31.0); MEAN CORPUSCULAR HGB CONC 32.1 (31.8-35.4); MEAN CORPUSCULAR VOLUME 97.2 fl (80.0-94.0); PLATELET COUNT 218 10^3/uL (140-440); RDW COEFFICIENT OF VARIATION 15.3 % (11.6-14.8); RED BLOOD COUNT 3.56 10^6/ul (4.70-6.10); WHITE BLOOD COUNT 6.56 K/ul (4.2-10.2)
[2022-06-06 05:25] LABS: ALBUMIN 3.44 g/dL (3.5-5.0); ALKALINE PHOSPHATASE 74.3 U/L (56-119); ASPARTATE AMINO TRANSFERASE 45.6 U/L (17-59); BILIRUBIN,TOTAL 0.94 mg/dL (0.2-1.3); BLOOD UREA NITROGEN 19.1 mg/dL (9-20); CALCIUM 8.75 mg/dL (8.4-10.2); CARBON DIOXIDE 27.7 mmol/L (22-30.0); CHLORIDE 103.6 mmol/L (98-107); CREATININE 0.84 mg/dL (0.60-1.10); POTASSIUM 4.28 mmol/L (3.5-5.1); TOTAL PROTEIN 6.36 g/dL (6.3-8.2)
[2022-06-06 05:47] LABS: ANISOCYTOSIS NOT PRESENT (NOT PRESENT)
[2022-06-06] MEDS: RUXOLITINIB 10 MG PO SCH (08:17)
[2022-06-06] MEDS: TROSPIUM 20 MG PO SCH (08:17)
[2022-06-06] MEDS: COREG PO SCH (08:18)
[2022-06-06] MEDS: MULTIVITAMIN TABLET PO SCH (08:18)
[2022-06-06] MEDS: FLOMAX PO SCH (08:18)
[2022-06-06] MEDS: CARDIZEM PO SCH (08:18)
[2022-06-06] MEDS: CORDARONE PO SCH (08:18)
[2022-06-06] MEDS: ELIQUIS PO SCH (08:19)
[2022-06-06] MEDS ORDERED: MIRALAX PO SCH (09:00)
[2022-06-06] MEDS: OXYCODONE PO PRN (14:02)
[2022-06-06 14:25] VITALS: BP 118/64; TEMP 96.7
--- NOTE | 2022-06-09 13:18 | CONS ---
DATE OF CONSULTATION:06/04/22 REASON FOR CONSULTATION: New onset atrial fibrillation with rapid ventricular response. HISTORY OF PRESENT ILLNESS: 81 year old white male who underwent left total knee replacement was hospitalized to [facility] on 06/03/22. The patient on admission was noted to have atrial fibrillation with rapid ventricular response on EKG on telemetry. During his stay in [place] for his left knee replacement that was 5 days ago prior to hospitalization in the swing here he was sinus rhythm. The patient practically is asymptomatic from it except for mild shortness of breath on exertion. The patient has no previous history of any significant cardiac arrhythmias. REVIEW OF SYSTEMS: CONSTITUTIONAL: No night sweats. Mild fatigue. No fever or chills. HEENT: Eyes: No visual changes. No eye pain. No eye discharge. ENT: No sinus drainage. No epistaxis. No sinus pain. No sore throat. No odynophagia. No ear pain. No congestion. RESPIRATORY: No cough, no congestion. No hemoptysis. Mild shortness of breath on exertion. CARDIOVASCULAR: No angina symptoms. No CHF symptoms. No atypical chest pain for CAD. No palpitations. No orthopnea. GASTROINTESTINAL: No abdominal pain. No nausea or vomiting. No diarrhea or constipation. No hematemesis. No hematochezia. GENITOURINARY: No urgency. No frequency. No dysuria. No hematuria. No obstructive symptoms. No discharge. No pain. No significant abnormal bleeding. MUSCULOSKELETAL: No musculoskeletal pain. No joint swelling. Left knee soreness. NEUROLOGICAL: No headache. No neck pain. No syncope. No seizures. No dizziness. PSYCHIATRIC: Not anxious. No depression. No suicidal thoughts. No homicidal thoughts. SKIN: No rash. No lesions. No wounds. ENDOCRINE: No unexplained weight loss. No weight gain. HEMATOLOGIC/LYMPHATIC: No anemia. No purpura. No petechiae. No prolonged or excessive bleeding. No palpable lymph nodes. MEDICATIONS: Multivitamin Jakafi Trospium MEDICATIONS GIVEN BY ORTHOPEDIC SURGEON: One full Aspirin twice a day Ibuprofen 400mg Q 8 Oxycodone for pain PRN 5mg every 4 hours. After being found in Atrial fibrillation all those medications were discontinued. Now the patient is on Apixaban 5mg twice a day agreed with that, Diltazem drip. The patient is on Oxycodone. ALLERGIES: No known drug allergies. SOCIAL/PERSONAL/FAMILY HISTORY: The patient is . Nonsmoker. No alcohol abuse. Does all activity of daily living. PHYSICAL EXAMINATION: GENERAL: The patient is oriented to time, place and person. VITAL SIGNS: Temperature 96.9, pulse 80 irregular, respiratory rate 18, blood pressure 130/80 and pulse ox 99% on room air. HEENT: Head normocephalic, atraumatic. Eyes: Extraocular muscles are intact. Pupils are equal, round and reactive to light and accommodation. Ears: No lesions. Nose appeared normal. Throat: No exudate or erythema. NECK: Supple. No JVD, no carotid bruit. No lymphadenopathy or thyromegaly. LUNGS: Decreased breath sounds but clear to auscultation. Percussion note normal. Chest symmetrical. HEART: S1, S2 irregular. Apical rate 100 per minute, no S3. No murmurs. No cyanosis or clubbing. No ascites. Pulses: Dorsalis pedis and posterior tibial pulses +2 bilaterally. ABDOMEN: Soft. Nontender. Bowel sounds active. No CVA tenderness. No mass felt. EXTREMITIES: No edema. Full range of motion of all extremities, equal. Left knee swollen with knee replacement. Both calf muscles nontender. NEUROLOGIC: No focal deficit. Cranial nerves II through XII are grossly intact. No headache, no double vision or headache. SKIN: Not dry. Intact. Turgor - normal. LYMPHATIC: No palpable lymph nodes/no lymphedema. MUSCULOSKELETAL: Normal joints with no swelling. Muscle tone is normal. LABS: EKG reviewed times two shows atrial fibrillation with 90-100 per minute, low voltage. The patient has increased AP diameter of the chest. Labs reviewed. The patient's kidney and liver profile normal. Has mild anemia. GFR is 98cc per minute. Normal glucose levels. ASSESSMENT: 1. Atrial fibrillation with rapid ventricular response 2. Status post left knee replacement 3. Anemia secondary to probably blood loss during surgery RECOMMENDATIONS: 1. The patient underwent echocardiographic examination and revealed borderline LVH with mild enlargement of LA cavity which was 4.2cm. Stricture are normal. LV size is normal. LV ejection fraction is normal. 2. I agreed with Apixaban 5mg PO twice a day as the patient has been in atrial fibrillation for past more than 24 hours 3. Discontinue Ibuprofen 4. With discontinuation of Aspirin 5. Decrease the Cardizem drip to 8mg and try to wean him off 6. Start Cardizem 60mg twice a day 7. Lanoxin 0.125mg IV one dose to control the rate. Case discussed with attending Dr. Dobbins. Thank you very much for referral, will follow. MTDD
--- NOTE | 2022-06-09 13:35 | CONS ---
%. DATE OF SERVICE: 06/05/22 CONSULT FOLLOWUP SUBJECTIVE: 81 year old male hospitalized with status post left total knee replacement for swing bed for physical therapy and on admission was noted to have new onset atrial fibrillation with rapid ventricular response. The patient has practically no symptoms. REVIEW OF SYSTEMS: CONSTITUTIONAL: No night sweats. No fatigue, malaise, lethargy. No fever or chills. HEENT: Eyes: No visual changes. No eye pain. No eye discharge. ENT: No runny nose. No epistaxis. No sinus pain. No sore throat. No odynophagia. No ear pain. No congestion. RESPIRATORY: No cough, no congestion. No hemoptysis. CARDIOVASCULAR: No angina symptoms. No CHF symptoms. No atypical chest pain for CAD. No palpitations. No shortness of breath. GASTROINTESTINAL: No abdominal pain. No nausea or vomiting. No diarrhea or constipation. No hematemesis. No hematochezia. GENITOURINARY: No urgency. No frequency. No dysuria. No hematuria. No obstructive symptoms. No discharge. No pain. No significant abnormal bleeding. MUSCULOSKELETAL: No musculoskeletal pain. No joint swelling. No arthritis. Left knee soreness. NEUROLOGICAL: No headache. No neck pain. No syncope. No seizures. No dizziness. PSYCHIATRIC: Not anxious. No depression. No suicidal thoughts. No homicidal thoughts. SKIN: No rash. No lesions. No wounds. ENDOCRINE: No unexplained weight loss. No weight gain. HEMATOLOGIC/LYMPHATIC: No anemia. No purpura. No petechiae. No prolonged or excessive bleeding. No palpable lymph nodes. PHYSICAL EXAMINATION: VITAL SIGNS: Temperature 97, pulse 89, respiratory rate 18, blood pressure 112/73 and pulse ox 99% HEENT: Head normocephalic, atraumatic. Eyes: Extraocular muscles are intact. Pupils are equal, round and reactive to light and accommodation. Ears: No lesions. Nose appeared normal. Throat: No exudate or erythema. NECK: Supple. No JVD, no carotid bruit. No lymphadenopathy or thyromegaly. LUNGS: Decreased breath sounds but clear to auscultation. Percussion note normal. Chest symmetrical. HEART: S1, S2 distant. Irregular rate 100 per minute. No murmur. No cyanosis or clubbing. No ascites. Pulses: Dorsalis pedis and posterior tibial pulses +1 to +2 bilaterally. ABDOMEN: Soft. Nontender. Bowel sounds active. No CVA tenderness. No mass felt. EXTREMITIES: No edema. Full range of motion of all extremities, equal. Healing well. No drainage. NEUROLOGIC: No focal deficit. Cranial nerves II through XII are grossly intact. No headache, no double vision or headache. SKIN: Not dry. Intact. Turgor - normal. LYMPHATIC: No palpable lymph nodes/no lymphedema. MUSCULOSKELETAL: Normal joints with no swelling. Muscle tone is normal. LABS: Telemetry strips examined, the patient has atrial fibrillation with rate of 80- 100 per minute on exertion it goes up to 120 to 130. Hgb 10.9, hct 33, WBC 5,400 normal differential, creatinine 0.7, BUN 20, potassium 3.8 ASSESSMENT: 1. Atrial fibrillation with varying ventricular response. RECOMMENDATIONS: 1. Increase Amiodarone to 200mg twice a day 2. Will do BNP 3. Coreg 3.125mg PO twice a day 4. Cardizem 60mg twice a day, he is off Cardizem drip 5. The patient has been explained about Eliquis and side effects like intracranial bleed and GI bleed and advised to stay away from nonsteroidal antiinflammatory 6. The patient was explained about atrial fibrillation and complications. CHADS VASC SCORE normal is for his age. MTDD
--- NOTE | 2022-06-09 13:47 | CONS ---
DATE OF SERVICE: 06/06/22 CONSULT FOLLOWUP SUBJECTIVE: 81 year old white male hospitalized with status post left knee replacement done 5 days done prior to hospitalization in the swing bed for physical therapy. The patient was noted to have new onset atrial fibrillation. Converted to sinus rhythm last night. His EKG reviewed with sinus rhythm. No acute change. He does low voltage otherwise normal. REVIEW OF SYSTEMS: CONSTITUTIONAL: No night sweats. No fatigue, malaise, lethargy. No fever or chills. HEENT: Eyes: No visual changes. No eye pain. No eye discharge. ENT: No runny nose. No epistaxis. No sinus pain. No sore throat. No odynophagia. No ear pain. No congestion. RESPIRATORY: No cough, no congestion. No hemoptysis. CARDIOVASCULAR: No angina symptoms. No CHF symptoms. No atypical chest pain for CAD. No palpitations. No shortness of breath. GASTROINTESTINAL: No abdominal pain. No nausea or vomiting. No diarrhea or constipation. No hematemesis. No hematochezia. GENITOURINARY: No urgency. No frequency. No dysuria. No hematuria. No obstructive symptoms. No discharge. No pain. No significant abnormal bleeding. MUSCULOSKELETAL: No musculoskeletal pain. No joint swelling. No arthritis. NEUROLOGICAL: No headache. No neck pain. No syncope. No seizures. No dizziness. PSYCHIATRIC: Not anxious. No depression. No suicidal thoughts. No homicidal thoughts. SKIN: No rash. No lesions. No wounds. ENDOCRINE: No unexplained weight loss. No weight gain. HEMATOLOGIC/LYMPHATIC: No anemia. No purpura. No petechiae. No prolonged or excessive bleeding. No palpable lymph nodes. PHYSICAL EXAMINATION: VITAL SIGNS: Temperature 97, pulse 80, respiratory rate 18, blood pressure 120/66 and pulse ox 97%. HEENT: Head normocephalic, atraumatic. Eyes: Extraocular muscles are intact. Pupils are equal, round and reactive to light and accommodation. Ears: No lesions. Nose appeared normal. Throat: No exudate or erythema. NECK: Supple. No JVD, no carotid bruit. No lymphadenopathy or thyromegaly. LUNGS: Decreased breath sounds but clear to auscultation. Percussion note normal. Chest symmetrical. HEART: S1, S2 irregular, no S3. No murmur. No cyanosis or clubbing. No ascites. Pulses: Dorsalis pedis and posterior tibial pulses +1 to +2 bilaterally. ABDOMEN: Soft. Nontender. Bowel sounds active. No CVA tenderness. No mass felt. EXTREMITIES: No edema. Full range of motion of all extremities, equal. No calf tenderness. No edema. Left incision healing well. NEUROLOGIC: No focal deficit. Cranial nerves II through XII are grossly intact. No headache, no double vision or headache. SKIN: Not dry. Intact. Turgor - normal. LYMPHATIC: No palpable lymph nodes/no lymphedema. MUSCULOSKELETAL: Normal joints with no swelling. Muscle tone is normal. LABS: Hgb 11.1, hct 34< WBC 6,500 normal differential, creatinine 0.8, BUN 19, potassium 4.2. Telemetry strips examined, sinus rhythm. rate 80-90 per minute. ASSESSMENT: 1. Atrial fibrillation has resolved, now the patient is sinus rhythm RECOMMENDATIONS: 1. Continue Cardizem 60mg twice a day 2. Coreg 3.125mg BID 3. The patient is to be converted to swing bed from acute bed. CONDITION: Stable. MTDD
== END 2022-06-06 14:30 | disposition swing bed (61) | DRG 310 ==
LOC: MEDSURG A 18:14
PROVIDERS: ADMIT Family Medicine; ATTEND Family Medicine
DX: Z74.1 Need for assistance with personal care; R53.1 Weakness; Z96.652 Presence of left artificial knee joint; R26.81 Unsteadiness on feet; M25.562 Pain in left knee; Z51.81 Encounter for therapeutic drug level monitoring; Z79.899 Other long term (current) drug therapy; I48.91 Unspecified atrial fibrillation; Z47.1 Aftercare following joint replacement surgery; D50.0 Iron deficiency anemia secondary to blood loss (chronic); M19.90 Unspecified osteoarthritis, unspecified site; I10 Essential (primary) hypertension; Z85.46 Personal history of malignant neoplasm of prostate; R06.6 Hiccough